=== PATIENT | male | born 2000 | race Caucasian/White ===

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

== ENCOUNTER 2018-01-06 02:48 | Emergency (ER) | payer OTHER ==
[~2018-01-06] VITALS: Ht 185.4 cm; Wt 143.0 kg
[~2018-01-06 02:48] MED LIST changes: -ABILIFY INJ; +ARIP1INJ IM; -AZITTAB PO; -BISA-16 PO; -DOCU-94 PO; -METF1000 PO; -OMEG10007 PO; -SYN50 PO; -[UNRECOGNIZED DRUG - OTHER] PO
[2018-01-06 02:55] VITALS: TEMP 36.4; Ht 185.4 cm; Wt 143.0 kg
[2018-01-06] MEDS ORDERED: KETOROLAC TROMETHAMINE 60 MG/2 ML VIAL IM STA (03:24)
--- NOTE | 2018-01-06 03:33 | EMERGENCY ROOM VISIT NOTE ---
History Report prepared by Dian: Sol Giraldo Under the Supervision of: Dr. Mattie Taylor D.O. First contact with patient: 03:07 Chief Complaint: BACK PAIN Stated Complaint: BACK PAIN History of Present Illness The patient is a 17 year old male who presents to the Emergency Room with complaints of intermittent back pain for one year. He currently rates his pain an 8/10 in severity. He state that he pulled his back so bad he could not walk at that time. He was seen in August 2017 for similar symptoms and was given Toradol at that time. He states that he has restless leg syndrome. He states that he has been seeing a chiropractor for his back pain. He reports he had an XR of his back and it revealed his vertebras are misaligned. He reports constipation. He states that he has tried an enema, stool softeners, and milk of magnesia, though no relief. He states he has taken a whole bottle of Miralax and that provided relief. He notes that he can only have his treatment medications prescribed to him since he lives in a snf, therefore he cannot purchase the Miralax on his own. He states he is a current smoker. When advised to quit smoking, the patient replied, "nah." The patient was recently seen at [facility] last night for similar symptoms and was prescribed a shot of unknown medication and was prescribed [place], though he cannot have it filled until Sunday. He states the shot was not relieving. He states that he does not like [place] and that is why he came here to [facility]. The patient and his caregiver drove from [place]. Source of History: patient Onset: one year Position: back Symptom Intensity: 8/10 Timing: intermittent Note: Notes constipation. Review of Systems See HPI for pertinent positives & negatives. A total of 6 systems reviewed and were otherwise negative. Past Medical & Surgical Medical Problems: (1) Autism (2) Depression Family History Autism FH: bipolar disorder FH: depression Social History Smoking Status: Current Every Day Smoker Marital Status: single Housing Status: other (snf) Current/Historical Medications Scheduled Aripiprazole (Abilify Maintena), 400 MG IM Q28 DAYS Allergies Coded Allergies: [place] (Unverified Allergy, Unknown, UNKNOWN, 09/26/16) Uncoded Allergies: CHEMO MED (Allergy, Unknown, UNKNOWN, 09/26/16) PT INDICATED HE HAD CANCER WHEN HE WAS YOUNGER. Physical Exam Vital Signs Date Time Temp Pulse Resp B/P (MAP) Pulse Ox O2 Delivery O2 Flow Rate FiO2 01/06/18 03:57 66 18 150/90 98 01/06/18 02:55 36.4 66 18 150/90 98 Room Air Physical Exam Heart: Regular rate and rhythm. There is a normal S1 and S2 with no murmurs, clicks, or gallops appreciated. Lungs: Clear to auscultation bilaterally with no wheezes, rales, or rhonchi. Abdomen: Soft, completely nontender, nondistended, with good bowel sounds. There are no palpable pulsatile masses or hepatosplenomegaly. There is no guarding, rigidity, or rebound noted. Back: Moderate paraspinous muscle spasm on the left lower thoracic spine. Extremities: No evidence of cyanosis, clubbing, or edema. There are easily palpable peripheral pulses. Skin: warm and dry with good turgor and no rashes. Medical Decision & Procedures Medications Administered Medications (Trade) Dose Ordered Sig/Rhona Route Start Time Stop Time Status Last Admin Dose Admin Ketorolac Tromethamine (Toradol Inj) 60 mg NOW STAT IM 01/06/18 03:24 01/06/18 03:25 DC 01/06/18 03:29 60 MG Procedure IM Toradol ED Course 0314: Past medical records reviewed. The patient was evaluated in room B5. A complete history and physical exam was performed. I discussed the treatment plan with the patient. I answered all pertaining questions that he had. He expressed understanding and verbalized agreement. The patient will be discharged home. 0324: Ordered Toradol 60 mg IM Medical Decision The patient is a 17 year old male who presents to the ED with back pain. Differential diagnosis includes low back strain, muscles spasm of the back, kidney stone, and UTI. The patient was seen at [facility] last evening with the same complaint. He was given a shot of pain medication there and prescribed [place]. The staff member admits that they did not get the [place] filled yet. The patient had been seen previously at this hospital and had good experience so he requested to come back here tonight. He had been seen here previously for back pain and was given a shot of pain medication which relieved his discomfort at that time. I reviewed that chart and the patient had received Toradol. So the patient was given 60 mg of IM Toradol here in the emergency department. We had an extensive conversation about the patient's constipation. I recommended that he avoid taking [place] that have been previously prescribed for him as it will promote constipation. He can use Motrin or Tylenol at home for pain. I recommended that he take plenty of clear liquids including prune juice and MiraLAX. He can return here to the emergency department if his symptoms worsen. Medication Reconcilliation Current Medication List: was personally reviewed by me Blood Pressure Screening Patient's blood pressure: Elevated blood pressure Blood pressure disposition: Elevated BP felt to be situational Impression Primary Impression: Low back pain Scribe Attestation The scribe's documentation has been prepared under my direction and personally reviewed by me in its entirety. I confirm that the note above accurately reflects all work, treatment, procedures, and medical decision making performed by me. Departure Information Dispostion Home / Self-Care Referrals No Doctor, Assigned (PCP) Forms HOME CARE DOCUMENTATION FORM, IMPORTANT VISIT INFORMATION Patient Instructions Low Back Pain Self Care, My [facility] Additional Instructions Use tylenol or motrin for pain. do not take [place] as it will worsen your constipation. Follow up with Dr. Platt on Sunday if back pain continues or you remain constipated Follow up with your chiropracter.
[2018-01-06 03:57] VITALS: BP 150/90; PULSE 66; O2SAT 98
== END 2018-01-06 03:59 | disposition home or self-care (01) ==
LOC: C.EDB 02:50
DX: M54.5 Low back pain (principal); F84.0 Autistic disorder; F32.9 Major depressive disorder, single episode, unspecified; F17.210 Nicotine dependence, cigarettes, uncomplicated; Z79.899 Other long term (current) drug therapy; Z88.8 Allergy status to other drugs, medicaments and biological substances

== ENCOUNTER 2018-04-01 19:44 | Inpatient (IN) | payer OTHER ==
[~2018-04-01] VITALS: Ht 185.4 cm; Wt 136.4 kg
[~2018-04-01 19:44] MED LIST changes: +ALBINS/ INH; -ARIP1INJ IM; +NYST100033 TOP
[2018-04-01] MEDS ORDERED: ACETAMINOPHEN 500 MG TAB PO STA (20:13)
[2018-04-01] MEDS ORDERED: SODIUM CHLORIDE 0.9% 1000ML 1,000 ML IV STA (20:13)
[2018-04-01] MEDS ORDERED: IBUPROFEN 600 MG TAB PO STA (20:13)
--- NOTE | 2018-04-01 20:24 | EMERGENCY ROOM VISIT NOTE ---
History Report prepared by Dian: Radha Winchester Under the Supervision of: Dr. Xu Herbert M.D. First contact with patient: 19:54 Chief Complaint: INFECTION Stated Complaint: L LEG INFECTION,FEVER History of Present Illness The patient is a 17 year old male who presents to the Emergency Room with complaints of a worsening infection in his left leg beginning a couple days ago. The patient reports the swelling and redness on his left leg has worsened over the past day. The patient started to develop a fever this afternoon. He denies any cough, congestion, shortness of breath, nausea, or vomiting. The patient was given IM antibiotics at [facility] over the past two days and was started on Bactrim He also had an ultrasound at [facility] today but he states they did not have the results yet. He denies any recent tick bites. 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 The patient used to take Klonopin for a history of autism. Source of History: patient Onset: couple days ago Position: leg (left) Quality: other (infection) Timing: worsening Associated Symptoms: + fevers, No cough, No SOB, No nausea, No vomiting Review of Systems See HPI for pertinent positives and negatives. A total of ten systems were reviewed and were otherwise negative. Past Medical & Surgical Medical Problems: (1) Autism (2) Depression (3) Leukemia Family History Autism FH: bipolar disorder FH: depression Social History Smoking Status: Current Every Day Smoker Marital Status: single Housing Status: other Current/Historical Medications Scheduled Sulfa/Trimethoprim (Bactrim Ds 800MG/160MG), 1 TAB PO BID Allergies Coded Allergies: [place] (Unverified Allergy, Unknown, UNKNOWN, 02/21/18) Uncoded Allergies: CHEMO MED (Allergy, Unknown, UNKNOWN, 09/26/16) PT INDICATED HE HAD CANCER WHEN HE WAS YOUNGER. Physical Exam Vital Signs Date Time Temp Pulse Resp B/P (MAP) Pulse Ox O2 Delivery O2 Flow Rate FiO2 04/01/18 22:59 37.2 84 20 147/60 97 Room Air 04/01/18 21:40 38.4 04/01/18 21:38 94 18 144/67 96 Room Air 04/01/18 19:51 38.3 97 18 145/78 96 Room Air Physical Exam GENERAL: Awake, alert, well-appearing, in no distress HENT: Normocephalic, atraumatic. Oropharynx unremarkable. Mucous membranes are dry. EYES: Normal conjunctiva. Sclera non-icteric. NECK: Supple. No nuchal rigidity. FROM. No JVD. RESPIRATORY: Clear to auscultation. CARDIAC: Regular rate, normal rhythm. Extremities warm and well perfused. Pulses equal. ABDOMEN: Soft, non-distended. No tenderness to palpation. No rebound or guarding. No masses. RECTAL: Deferred. MUSCULOSKELETAL: Chest examination reveals no tenderness. The back is symmetrical on inspection without obvious abnormality. There is no CVA tenderness to palpation. No joint edema. LOWER EXTREMITIES: Calves are equal size bilaterally and non-tender. Erythema, warmth and tenderness to left anterior kneed with 2cm area of induration and fluctuance in prepatellar bursa. NEURO: Normal sensorium. No sensory or motor deficits noted. SKIN: No rash or jaundice noted. Medical Decision & Procedures Laboratory Results 04/01/18 20:30 Red Blood Count 5.28, Mean Corpuscular Volume 85.4, Mean Corpuscular Hemoglobin 28.4, Mean Corpuscular Hemoglobin Concent 33.3, Mean Platelet Volume 11.3, Neutrophils (%) (Auto) 74.6, Lymphocytes (%) (Auto) 17.0, Monocytes (%) (Auto) 6.2, Eosinophils (%) (Auto) 1.8, Basophils (%) (Auto) 0.2, Neutrophils # (Auto) 9.30, Lymphocytes # (Auto) 2.12, Monocytes # (Auto) 0.77, Eosinophils # (Auto) 0.22, Basophils # (Auto) 0.02 04/01/18 20:30 Test 04/01/18 20:30 04/01/18 20:40 04/01/18 22:20 White Blood Count 12.46 K/uL (4.8-10.8) Red Blood Count 5.28 M/uL (4.7-6.1) Hemoglobin 15.0 g/dL (14.0-18.0) Hematocrit 45.1 % (42-52) Mean Corpuscular Volume 85.4 fL (80-100) Mean Corpuscular Hemoglobin 28.4 pg (25-34) Mean Corpuscular Hemoglobin Concent 33.3 g/dl (32-36) Platelet Count 236 K/uL (130-400) Mean Platelet Volume 11.3 fL (7.4-10.4) Neutrophils (%) (Auto) 74.6 % Lymphocytes (%) (Auto) 17.0 % Monocytes (%) (Auto) 6.2 % Eosinophils (%) (Auto) 1.8 % Basophils (%) (Auto) 0.2 % Neutrophils # (Auto) 9.30 K/uL (1.4-6.5) Lymphocytes # (Auto) 2.12 K/uL (1.2-3.4) Monocytes # (Auto) 0.77 K/uL (0.11-0.59) Eosinophils # (Auto) 0.22 K/uL (0-0.5) Basophils # (Auto) 0.02 K/uL (0-0.2) RDW Standard Deviation 43.1 fL (36.4-46.3) RDW Coefficient of Variation 13.9 % (11.5-14.5) Immature Granulocyte % (Auto) 0.2 % Immature Granulocyte # (Auto) 0.03 K/uL (0.00-0.02) Erythrocyte Sedimentation Rate 42 mm/hr (0-14) Anion Gap 6.0 mmol/L (3-11) Est Creatinine Clear Calc Drug Dose 157.7 ml/min Estimated GFR () 117.3 Estimated GFR (Non- 101.2 BUN/Creatinine Ratio 10.8 (10-20) Calcium Level 9.2 mg/dl (8.5-10.1) Total Bilirubin 0.4 mg/dl (0.2-1) Direct Bilirubin 0.1 mg/dl (0-0.2) Aspartate Amino Transf (AST/SGOT) 23 U/L (15-37) Alanine Aminotransferase (ALT/SGPT) 29 U/L (12-78) Alkaline Phosphatase 96 U/L (45-117) C-Reactive Protein 7.93 mg/dl (0-0.29) Total Protein 7.8 gm/dl (6.4-8.2) Albumin 3.6 gm/dl (3.4-5.0) Lipase 104 U/L (73-393) Lyme Disease IgG Antibody POS (NEG) Lactic Acid Level 0.8 mmol/L (0.4-2.0) Laboratory results reviewed by me Medications Administered Medications (Trade) Dose Ordered Sig/[facility] Route Start Time Stop Time Status Last Admin Dose Admin Sodium Chloride 1,000 ml @ 999 mls/hr Q1H1M STAT IV 04/01/18 20:13 04/01/18 21:13 DC 04/01/18 20:13 999 MLS/HR Acetaminophen (Tylenol Tab) 1,000 mg NOW STAT PO 04/01/18 20:13 04/01/18 20:16 DC 04/01/18 20:52 1,000 MG Ibuprofen (Motrin Tab) 800 mg NOW STAT PO 04/01/18 20:13 04/01/18 20:16 DC 04/01/18 20:52 800 MG Vancomycin HCl 2250 mg/Sodium Chloride 545 ml @ 200 mls/hr ONE STAT IV 04/01/18 20:28 04/01/18 23:11 04/01/18 21:36 200 MLS/HR Piperacillin Sod/ Tazobactam Sod (Zosyn Iv) 4.5 gm NOW STAT IV 04/01/18 20:28 04/01/18 20:30 DC 04/01/18 20:52 4.5 GM Procedure Aspiration Indication: Septic prepatellar bursitis. Location: Left knee prepatellar bursa Verbal consent was obtained after the risks and benefits were explained, including but not limited to bleeding, scarring, infection, pain, and bone/joint /nerve damage. At this time, the risks of the procedure are less than the risks of NOT performing the procedure. A time out was taken and the correct patient and site identified. Heterogenous prepatellar bursa identified and marked on bedside ultrasound prior to aspiration. The skin was prepped with betadine and a sterile field set. The wound was anesthetized with 4 ml of 1% lidocaine without epinephrine. Marked site was entered with an 18-gauge needle with removal of approximately 10 cc of sanguinous aspirate. Detailed wound care instructions and signs and symptoms of worsening infection reviewed with the patient. No complications and the patient tolerated the procedure well. ED Course 2006: The patient was evaluated in room C4. A complete history and physical exam was performed. Medical Decision I reviewed the patient's past medical history, medications, and the nursing notes as described above. Differential diagnosis: septic bursitis, septic knee, abscess, bursitis, or cellulitis The patient is a pleasant 17-year-old gentleman who presents to emergency department with worsening redness, swelling, pain overlying his left knee in the setting of being managed at his PCPs office for cellulitis given IM dose of ceftriaxone for the past 2 days and on Bactrim per hpi. Of note, the patient had an outpatient ultrasound that demonstrated a complex cystic heterogenous collection of the anterior left knee measuring 3.3 x 1.9 x 4.7 cm with differential including abscess versus septic prepatellar bursitis versus septic arthritis. On arrival the patient is well-appearing in no acute distress, febrile to 38.3 vital signs otherwise stable. On exam the patient has erythema and warmth to the left anterior knee with 2 cm area of induration and fluctuance overlying the prepatellar bursa. Patient does have full range of motion albeit with discomfort and he is able to bear weight, making septic arthritis less likely. However, given the patient is currently on outpatient antibiotics which included IM ceftriaxone and oral Bactrim still has worsening is reasonable to admit the patient for IV antibiotics and ortho consultation. Will provide broad coverage for now with vancomycin and Zosyn. Lyme screen subsequently with positive IgM. Thus will add ceftriaxone as well. Aspiration of the patient's prepatellar bursa performed per procedure note with 10 cc of sanguinous aspirate removed likely consistent with phlegmon. Case was discussed with Dr. Torres [facility], who will evaluate the patient for admission. Medication Reconcilliation Current Medication List: was personally reviewed by me Consults Time Called: 2240 Consulting Physician: Dr. Torres [facility]. Returned Call: 2250 He will evaluate the patient for admission. Impression Primary Impression: Septic prepatellar bursitis of left knee Additional Impression: Lyme disease, unspecified Scribe Attestation The scribe's documentation has been prepared under my direction and personally reviewed by me in its entirety. I confirm that the note above accurately reflects all work, treatment, procedures, and medical decision making performed by me. Departure Information Referrals No Doctor, Assigned (PCP) Patient Instructions My [facility] Problem Qualifiers
[2018-04-01] MEDS ORDERED: PIPERACILLIN/TAZOBACTAM 4.5 GM/100ML D5W IV STA (20:28)
[2018-04-01] MEDS ORDERED: VANCOMYCIN IV 2,250 MG in SODIUM CHLORIDE 0.9% 500ML 500 ML IV STA (20:28)
[2018-04-01] MEDS ORDERED: VANCOMYCIN CONSULT ACTIVE PRN (20:30)
[2018-04-01] MEDS ORDERED: IBUPROFEN 200 MG TAB ONE (20:41)
[2018-04-01] MEDS ORDERED: SULF800T23 PO (21:01)
[2018-04-01 21:08] LABS: BASO % 0.2 %; BASO ABS # 0.02 K/uL (0-0.2); EOS % 1.8 %; EOS ABS # 0.22 K/uL (0-0.5); HEMATOCRIT 45.1 % (42-52); IG# 0.03 K/uL (0.00-0.02); LYMPH ABS # 2.12 K/uL (1.2-3.4); MEAN CELL VOLUME 85.4 fL (80-100); MEAN CORPUSCULAR HEMOGLOBIN 28.4 pg (25-34); MEAN CORPUSCULAR HGB CONC 33.3 g/dl (32-36); MEAN PLATELET VOLUME 11.3 fL (7.4-10.4); MONO % 6.2 %; MONO ABS # 0.77 K/uL (0.11-0.59); NEUT % 74.6 %; PLATELET COUNT 236 K/uL (130-400); RED CELL DISTRIBUTION WIDTH CV 13.9 % (11.5-14.5); RED CELL DISTRIBUTION WIDTH SD 43.1 fL (36.4-46.3); WHITE BLOOD COUNT 12.46 K/uL (4.8-10.8)
[2018-04-01 21:19] LABS: ALBUMIN 3.6 gm/dl (3.4-5.0); CALCIUM 9.2 mg/dl (8.5-10.1); CREATININE 1.06 mg/dl (0.60-1.40); POTASSIUM 3.9 mmol/L (3.5-5.1); TOTAL PROTEIN 7.8 gm/dl (6.4-8.2)
--- NOTE | 2018-04-01 21:28 | DIAGNOSTIC IMAGING REPORT ---
L KNEE 3 VIEWS CLINICAL HISTORY: pain swelling, cellulitis pain. Edema. COMPARISON: None. DISCUSSION: The bones and joint spaces appear intact. There is no evidence of fracture, dislocation or bony disease. Moderate prepatellar soft tissue edema IMPRESSION: Soft tissue edema. No acute bony abnormality. The above report was generated using voice recognition software. It may contain grammatical, syntax or spelling errors. Electronically signed by: Solitario Ann M.D. 04/01/2018 9:27 PM Dictated Date/Time: 04/01/2018 9:26 PM
[2018-04-01] MEDS ORDERED: LIDOCAINE 1% BUFFERED INJ 20 ML VIAL INFIL ONE (21:45)
[2018-04-01] MEDS ORDERED: CEFTRIAXONE SOD INJ 2000 MG in DEXTROSE 5% 50ML IV SCH (22:26)
[2018-04-01] MEDS ORDERED: CEFTRIAXONE SOD INJ 1 GM ADDVIAL IV STA (22:26)
[2018-04-01] MEDS ORDERED: NICOTINE 21 MG/24 HR TDSY TD ONE (23:16)
[2018-04-01] MEDS ORDERED: LORATADINE 10 MG TAB PO ONE (23:30)
[2018-04-02] VITALS (12 sets, daily range): BP systolic 103–148; BP diastolic 57–86; PULSE 67–96; TEMP 36.5–36.8; O2SAT 93–97; Ht 185.4 cm; Wt 136.4 kg
[2018-04-02] MEDS ORDERED: VANCOMYCIN CONSULT ACTIVE PRN (00:45)
[2018-04-02] MEDS ORDERED: MoRPHine SULFATE 4 MG/ML 1 ML CARP\\VIAL IV PRN (00:45)
[2018-04-02] MEDS ORDERED: KETOROLAC TROMETHAMINE 30 MG/ML VIAL IV PRN (00:45)
[2018-04-02] MEDS ORDERED: ACETAMINOPHEN 325 MG TAB PO PRN (00:45)
[2018-04-02] MEDS ORDERED: LORAZEPAM 2 MG/ML 1 ML VIAL IV PRN (00:45)
[2018-04-02] MEDS ORDERED: IBUPROFEN 200 MG TAB PO PRN (00:45)
[2018-04-02] MEDS ORDERED: TRAMADOL HCL 50 MG TAB PO PRN (00:45)
[2018-04-02] MEDS ORDERED: NSS + 20MEQ KCL 1000ML 1,000 ML IV SCH (03:00)
--- NOTE | 2018-04-02 03:52 | Pharmacy Progress Note ---
Pharmacy Antibiotic Consult Date of Service: Apr 02, 2018. Pharmacy Dosing Scope Pharmacy is consulted to initiate VANCOMYCIN IV dosing therapy, order appropriate labs and adjust drug dose/frequency. Subjective The patient is a 17 year old male admitted on Apr 02, 2018 at 00:19. Objective Height (Feet): 6 Height (Inches): 1.00 Weight (Kilograms): 136.400 Lab Results (24hrs): Test 04/01/18 20:30 04/01/18 20:40 04/01/18 22:20 White Blood Count 12.46 K/uL (4.8-10.8) Red Blood Count 5.28 M/uL (4.7-6.1) Hemoglobin 15.0 g/dL (14.0-18.0) Hematocrit 45.1 % (42-52) Mean Corpuscular Volume 85.4 fL (80-100) Mean Corpuscular Hemoglobin 28.4 pg (25-34) Mean Corpuscular Hemoglobin Concent 33.3 g/dl (32-36) Platelet Count 236 K/uL (130-400) Mean Platelet Volume 11.3 fL (7.4-10.4) Neutrophils (%) (Auto) 74.6 % Lymphocytes (%) (Auto) 17.0 % Monocytes (%) (Auto) 6.2 % Eosinophils (%) (Auto) 1.8 % Basophils (%) (Auto) 0.2 % Neutrophils # (Auto) 9.30 K/uL (1.4-6.5) Lymphocytes # (Auto) 2.12 K/uL (1.2-3.4) Monocytes # (Auto) 0.77 K/uL (0.11-0.59) Eosinophils # (Auto) 0.22 K/uL (0-0.5) Basophils # (Auto) 0.02 K/uL (0-0.2) RDW Standard Deviation 43.1 fL (36.4-46.3) RDW Coefficient of Variation 13.9 % (11.5-14.5) Immature Granulocyte % (Auto) 0.2 % Immature Granulocyte # (Auto) 0.03 K/uL (0.00-0.02) Erythrocyte Sedimentation Rate 42 mm/hr (0-14) Sodium Level 136 mmol/L (136-145) Potassium Level 3.9 mmol/L (3.5-5.1) Chloride Level 102 mmol/L (98-107) Carbon Dioxide Level 28 mmol/L (21-32) Anion Gap 6.0 mmol/L (3-11) Blood Urea Nitrogen 12 mg/dl (7-18) Creatinine 1.06 mg/dl (0.60-1.40) Est Creatinine Clear Calc Drug Dose 157.7 ml/min Estimated GFR () 117.3 Estimated GFR (Non- 101.2 BUN/Creatinine Ratio 10.8 (10-20) Random Glucose 88 mg/dl (70-99) Calcium Level 9.2 mg/dl (8.5-10.1) Magnesium Level 1.9 mg/dl (1.8-2.4) Total Bilirubin 0.4 mg/dl (0.2-1) Direct Bilirubin 0.1 mg/dl (0-0.2) Aspartate Amino Transf (AST/SGOT) 23 U/L (15-37) Alanine Aminotransferase (ALT/SGPT) 29 U/L (12-78) Alkaline Phosphatase 96 U/L (45-117) C-Reactive Protein 7.93 mg/dl (0-0.29) Total Protein 7.8 gm/dl (6.4-8.2) Albumin 3.6 gm/dl (3.4-5.0) Lipase 104 U/L (73-393) Thyroid Stimulating Hormone (TSH) 2.920 uIu/ml (0.300-4.500) Lyme Disease IgG Antibody POS (NEG) Lyme Disease IgM Antibody NEG (NEG) Lactic Acid Level 0.8 mmol/L (0.4-2.0) Micro Results: * 04/01/18 -- Blood Cx x 2 -- pending * 04/01/18 -- L knee aspirate -- pending Recent Pertinent Medications Item Value Date Time Ceftriaxone 70 ml @ 140 mls/hr 04/01/182225 Sodium 2000 mg/ 2226/IV 04/01/18 233 Dextrose Piperacillin Sod/ 4.5 gm 04/01/182027 Tazobactam Sod NOW STAT/IV 04/01/182051 (Zosyn Iv) Assessment & Plan 17yo male ordered VANCOMYCIN for cellulitis. Renal function good. VANCOMYCIN: * Loading dose: VANCOMYCIN 2250mg (~17mg/kg) IV X 1 dose then VANCOMYCIN 1750mg (~13mg/kg) IV every 8 hours. * Goal trough level estimate: between 15 - 20 mcg/mL. * Estimated Pk parameters: Ke ~0.135 t 1/2 ~5 hours Vd ~0.6 L/kg * Trough level has been ordered for: @ 0600. Pharmacy will continue to follow and will adjust dose/frequency as necessary. Thank you
--- NOTE | 2018-04-02 05:22 | HISTORY & PHYSICAL EXAMINATION ---
DATE OF ADMISSION: 04/02/2018 PRIMARY CARE PHYSICIAN: Dr. Bahena. CHIEF COMPLAINT: Left knee swelling/pain. HISTORY OF PRESENT ILLNESS: History obtained from patient and records. Medical history significant for attention deficit, OCD, childhood leukemia in remission, prediabetes as per records, mood disorder, developmental disorder, autism, asthma, ongoing tobacco abuse. Few days history of L Knee swelling. No recollection of trauma. No fever, no chills. No recollection of recent tick bites. Seen at PCP's office 3 days ago. Impression was LLE cellulitis versus abscess. Given IM Ceftriaxone. Bactrim prescription given. Follow-up visit the following day. Improved swelling. Outpatient US the left lower extremity showed complex cystic heterogenous collection anterior left knee 3.3 x 1.9 x 4.7 cm with differentials including subcutaneous abscess, septic bursitis, arthritis. Outpatient Orthopedics referral recommended. Patient brought to the ER by family because of fever, chills. At the Emergency Room, the patient received Vancomycin, Zosyn, and Ceftriaxone after aspiration of left knee fluid. MEDICAL HISTORY: As above. SURGERIES: circumcision. HOME MEDICATIONS: Include Bactrim. ALLERGIES: LITHIUM. FAMILY HISTORY: There is a family history of hypertension, heart disease, diabetes. PERSONAL AND SOCIAL HISTORY: A pack daily. No chronic intake of alcoholic beverages. Disabled. REVIEW OF SYSTEMS: As per HPI, all 10 systems reviewed. All other ROS negative. PHYSICAL EXAMINATION: VITAL SIGNS: Blood pressure was noted to be 144/80, pulse rate 94, RR 20 temperature 38, sats 98 on room air. GENERAL: Noted to be obese, comfortable, in no respiratory distress. SKIN: Normal color, warm. HEENT: [place] palpebral conjunctivae. No ptosis. Dry mucosa. NECK: Short, supple. CHEST: Decreased effort, no tenderness. HEART: Regular rate and rhythm, no murmur. ABDOMEN: Soft, nontender. EXTREMITIES: Tender indurated swelling on the left knee, induration, minimal limitation in L knee ROM. NEUROLOGIC: Coherent. No gross focality. LABS: Hemoglobin was noted to be 14 white blood cell count 12, platelets noted to be 236. Sodium 137, potassium 3.6, CO2 is 28, creatinine 1, glucose 88. Lyme screen IgG positive, IgM negative. Knee x-ray, left knee, soft tissue edema, no acute pathology. Ultrasound of left lower extremity, no DVT. L knee aspirate initial Gram stain : many WBCs, gram-positive cocci ASSESSMENT: 1. Sepsis secondary to left knee swelling (likely extraarticular) Possible bursitis GPC on initial Gram stain. 2. Mood disorder, OCD as per records Patient off meds by choice. 3. High functioning autism as per records 4. Ongoing tobacco abuse 5. Abnormal Lyme screen (IgG positive) Probable past exposure PLAN: GMF Follow cultures IV Vancomycin for now Local measures for left knee swelling Orthopedics consult in a.m. RE left knee swelling N.p.o. in anticipation of additional procedure Nicotine patch. DVT prophylaxis, Lovenox subQ. Full code. MTDD
[2018-04-02] MEDS: VANCOMYCIN IV 1,750 MG in SODIUM CHLORIDE 0.9% 500ML 500 ML IV SCH ×3 (05:42→22:13)
[2018-04-02] MEDS ORDERED: VANCOMYCIN IV 1,750 MG in SODIUM CHLORIDE 0.9% 500ML 500 ML IV SCH (06:00)
[2018-04-02 06:22] LABS: PTT PATIENT 32.1 SECONDS (21.0-31.0)
--- NOTE | 2018-04-02 06:45 | DIAGNOSTIC IMAGING REPORT ---
LEFT LOWER EXTREMITY VENOUS DOPPLER CLINICAL HISTORY: Left lower extremity swelling. COMPARISON STUDY: None. TECHNIQUE: Sonography of the deep venous system of the left lower extremity was performed. Compression and augmentation were evaluated. FINDINGS: The left common femoral, superficial femoral and popliteal veins were compressible. Augmentation was normal. Flow was shown within the deep calf vessels. No is made of prominent left inguinal lymph nodes that measure up to 4.7 x 1.2 centimeters. These nodes contain a fatty hilum. IMPRESSION: 1. No evidence of deep venous thrombus within the left lower extremity. 2. Prominent left inguinal lymph nodes. Although mildly enlarged, these nodes have benign imaging characteristics. A follow-up ultrasound in 3 months could be obtained. Electronically signed by: Srinivas Enrique M.D. 04/02/2018 6:44 AM Dictated Date/Time: 04/02/2018 6:42 AM
[2018-04-02] MEDS ORDERED: NICOTINE 21 MG/24 HR TDSY TD SCH (09:00)
[2018-04-02] MEDS: ENOXAPARIN 40 MG/0.4 ML SYR SQ SCH (09:05)
[2018-04-02] MEDS ORDERED: LORATADINE/PSEUDOEPHEDRINE 1 TAB TABCR PO ONE (11:00)
[2018-04-02] MEDS ORDERED: MIDAZOLAM HCL 1 MG/ML 2ML VIAL ONE (11:15)
[2018-04-02] MEDS ORDERED: FENTANYL CITRATE INJ 50 MCG/1 ML 2 ML VIAL ONE (11:15)
[2018-04-02] MEDS ORDERED: LIDOCAINE HCL 2% 2 ML VIAL (20MG/ML) ONE (11:19)
[2018-04-02] MEDS ORDERED: PROPOFOL IV EMULSION 10 MG/ML 20 ML VIAL ONE ×2 (11:19→12:20)
--- NOTE | 2018-04-02 11:20 | Orthopedic Consultation ---
Orthopedic Consultation Date of Consultation: Apr 02, 2018. Attending Physician: Meño Arora M.D. Reason for Consultation: Left leg swelling History of Present Illness Mr. Mclaughlin is an 16-year-old male who has had about 2 weeks of progressively worsening swelling on his left superior-anterior knee area. Initially just noted some pain in the area, but no significant swelling. Then, about 3 days ago he developed swelling in the same area. He went to his primary care doctor , who gave him ceftriaxone IM, and Bactrim p.o. He had progressive worsening of the pain and swelling, and also developed fevers yesterday. He then presented to the emergency department, where they performed aspiration of a fluid collection in the area. They also gave him vancomycin, Zosyn, and ceftriaxone. Today, he feels like his knee feels a little bit better, but the swelling has not really improved. He denies any fevers, chills, nausea, or vomiting currently. He denies any significant pain with ambulation or knee range of motion. Past Medical/Surgical History Medical Problems: (1) Ankle pain Status: Acute (2) Bronchitis Status: Acute (3) Encounter for smoking cessation counseling Status: Acute (4) Low back pain Status: Acute (5) Low back strain Status: Acute (6) Lyme disease, unspecified Status: Acute (7) Mood disorder Status: Acute (8) Septic prepatellar bursitis of left knee Status: Acute (9) Skin breakdown Status: Acute (10) Suicidal ideations Status: Acute Family History Autism FH: bipolar disorder FH: depression Social History Smoking Status: Current Every Day Smoker Marital Status: single Housing Status: other Allergies Coded Allergies: [place] (Verified Allergy, Unknown, UNKNOWN, 04/01/18) Uncoded Allergies: CHEMO MED (Allergy, Unknown, UNKNOWN, 09/26/16) PT INDICATED HE HAD CANCER WHEN HE WAS YOUNGER. Home Medications Scheduled Sulfa/Trimethoprim (Bactrim Ds 800MG/160MG), 1 TAB PO BID Current Inpatient Medications Current Inpatient Medications Medications (Trade) Dose Ordered Sig/Rhona Route Start Time Stop Time Status Last Admin Dose Admin Nicotine (Nicoderm Cq 21MG Patch) 1 patch QAM TD 04/02/18 09:00 05/02/18 08:59 04/02/18 09:05 1 PATCH Miscellaneous (Remove Nicoderm Patch) 1 ea HS N/A 04/02/18 21:00 05/02/18 20:59 Enoxaparin Sodium (Lovenox Inj) 40 mg Q24H SQ 04/02/18 09:00 05/02/18 08:59 04/02/18 09:05 40 MG Acetaminophen (Tylenol Tab) 650 mg Q4H PRN PO 04/02/18 00:45 05/02/18 00:44 Ketorolac Tromethamine (Toradol Inj) 30 mg Q6H PRN IV 04/02/18 00:45 04/07/18 00:44 Ibuprofen (Advil Tab) 400 mg Q6H PRN PO 04/02/18 00:45 05/02/18 00:44 Tramadol HCl (Ultram Tab) not relieved by tylenol @ Q6H PRN PO 04/02/18 00:45 05/02/18 00:44 Morphine Sulfate (MoRPHine SULFATE INJ) 4 mg Q6H PRN IV 04/02/18 00:45 04/16/18 00:44 Potassium Chloride/Sodium Chloride 1,000 ml @ 60 mls/hr [id number] IV 04/02/18 03:00 05/02/18 00:44 04/02/18 03:08 60 MLS/HR Vancomycin HCl (Consult) 1 ea UD PRN N/A 04/02/18 00:45 05/02/18 00:44 Lorazepam 0.5 mg/ Syringe 1 ml @ 1 mls/min Q4H PRN IV 04/02/18 02:30 05/02/18 02:29 Vancomycin HCl 1750 mg/Sodium Chloride 535 ml @ 200 mls/hr Q8H IV 04/02/18 06:00 04/12/18 05:59 04/02/18 05:42 200 MLS/HR Loratadine/ Pseudoephedrine Sulfate (Claritin-D 24 Hour Tab) 1 tab QAM PO 04/03/18 09:00 05/03/18 08:59 Physical Exam Date Time Temp Pulse Resp B/P (MAP) Pulse Ox O2 Delivery O2 Flow Rate FiO2 04/02/18 08:25 Room Air 96 04/02/18 07:45 Room Air 04/02/18 07:37 36.8 68 18 148/86 (106) 96 Room Air 04/02/18 02:05 Room Air 04/02/18 01:47 36.7 77 16 132/71 95 Room Air 04/02/18 00:45 36.6 88 18 151/64 Room Air 04/01/18 22:59 37.2 84 20 147/60 97 Room Air 04/01/18 21:40 38.4 04/01/18 21:38 94 18 144/67 96 Room Air 04/01/18 19:51 38.3 97 18 145/78 96 Room Air Left leg and knee: He has an area of fluctuance, induration, erythema, and tenderness to palpation at least 6 cm in width, and 3-4 cm in height. The area involved is superior to the patella, and does not really involve the prepatellar bursa. No obvious knee joint effusion, although it is difficult to tell given the location of the abscess in the suprapatellar area. He has a tiny bit of serous drainage from his aspiration site. No expressible drainage, but this is limited by his significant tenderness to palpation. No significant pain with knee range of motion. Foot is warm and well-perfused. Motor and sensory is intact distally. Laboratory Results Last 24 Hours Test 04/01/18 20:30 04/01/18 20:40 04/01/18 22:20 04/02/18 05:50 White Blood Count 12.46 K/uL Red Blood Count 5.28 M/uL Hemoglobin 15.0 g/dL Hematocrit 45.1 % Mean Corpuscular Volume 85.4 fL Mean Corpuscular Hemoglobin 28.4 pg Mean Corpuscular Hemoglobin Concent 33.3 g/dl Platelet Count 236 K/uL Mean Platelet Volume 11.3 fL Neutrophils (%) (Auto) 74.6 % Lymphocytes (%) (Auto) 17.0 % Monocytes (%) (Auto) 6.2 % Eosinophils (%) (Auto) 1.8 % Basophils (%) (Auto) 0.2 % Neutrophils # (Auto) 9.30 K/uL Lymphocytes # (Auto) 2.12 K/uL Monocytes # (Auto) 0.77 K/uL Eosinophils # (Auto) 0.22 K/uL Basophils # (Auto) 0.02 K/uL RDW Standard Deviation 43.1 fL RDW Coefficient of Variation 13.9 % Immature Granulocyte % (Auto) 0.2 % Immature Granulocyte # (Auto) 0.03 K/uL Erythrocyte Sedimentation Rate 42 mm/hr Sodium Level 136 mmol/L Potassium Level 3.9 mmol/L Chloride Level 102 mmol/L Carbon Dioxide Level 28 mmol/L Anion Gap 6.0 mmol/L Blood Urea Nitrogen 12 mg/dl Creatinine 1.06 mg/dl Est Creatinine Clear Calc Drug Dose 157.7 ml/min Estimated GFR () 117.3 Estimated GFR (Non- 101.2 BUN/Creatinine Ratio 10.8 Random Glucose 88 mg/dl Calcium Level 9.2 mg/dl Magnesium Level 1.9 mg/dl Total Bilirubin 0.4 mg/dl Direct Bilirubin 0.1 mg/dl Aspartate Amino Transf (AST/SGOT) 23 U/L Alanine Aminotransferase (ALT/SGPT) 29 U/L Alkaline Phosphatase 96 U/L C-Reactive Protein 7.93 mg/dl Total Protein 7.8 gm/dl Albumin 3.6 gm/dl Lipase 104 U/L Thyroid Stimulating Hormone (TSH) 2.920 uIu/ml Lyme Disease IgG Antibody POS Lyme Disease IgM Antibody NEG Lactic Acid Level 0.8 mmol/L Synovial Fluid Source KNEE Synovial Fluid Color RED Synovial Fluid Appearance MUCOID Synovial Fluid WBC 387590 /uL Synovial Fluid RBC 185396 /uL Synovial Fluid Polynuclear WBCs % 98.7 % Synovial Fluid Mononuclear WBCs % 1.3 % Prothrombin Time 10.5 SECONDS Prothromb Time International Ratio 1.0 Activated Partial Thromboplast Time 32.1 SECONDS Partial Thromboplastin Ratio 1.2 Microbiology: Aspiration cultures from the emergency department are still pending, but Gram stain showed many gram-positive cocci. Blood cultures are negative so far. Radiology: Left knee x-rays are unremarkable. No significant arthritis. No obvious joint effusion. Assessment & Plan (1) Abscess of leg, left Assessment & Plan: He has a fairly large abscess in the left anterior superior knee area. This does not really involve the prepatellar bursa, and does not appear to involve the knee joint itself. I would recommend an irrigation and debridement surgery for definitive treatment of this. Surgical consent was obtained with the patient, and this was also discussed with the patient's grandmother. We will plan to do this today. I am covering orthopedic surgery call for Dr. Powell, who is unavailable. Elías Avila MD
[2018-04-02] MEDS ORDERED: BACITRACIN 50000 UNIT VIAL ONE (11:22)
[2018-04-02] MEDS ORDERED: ONDANSETRON INJ 2 MG/ML 2 ML VIAL ONE (12:16)
[2018-04-02] MEDS ORDERED: DEXAMETHASONE SOD INJ 4 MG/ML VIAL ONE (12:16)
[2018-04-02] MEDS ORDERED: FENTANYL CITRATE INJ 50 MCG/1 ML 2 ML VIAL IV PRN (12:30)
[2018-04-02] MEDS ORDERED: ATROPINE SULFATE 0.1 MG/ML 5ML SYR IV PRN (12:30)
[2018-04-02] MEDS ORDERED: ONDANSETRON INJ 2 MG/ML 2 ML VIAL IV PRN (12:30)
[2018-04-02] MEDS ORDERED: KETOROLAC TROMETHAMINE 30 MG/ML VIAL IV. PRN (12:30)
--- NOTE | 2018-04-02 13:02 | [facility] Post Operative Brief Note ---
Immediate Operative Summary Operative Date Apr 02, 2018. Pre-Operative Diagnosis left knee abcess Post-Operative Diagnosis Left Knee abscess Procedure(s) Performed Irrigation and debridement left knee abscess Surgeon Dr. Elías Avila Typewriters Functional Tester Surgeon(s) None Estimated Blood Loss 25CC Findings Consistent with Post-Op Diagnosis Fluids (cc crystalloids) 500cc Specimens Micro: #1: Left knee pus-anaerobic, aerobic, culture and sensitivity Drains Medium Hemovac x 1, Prevena incisional VAC Anesthesia Type General Complication(s) none
--- NOTE | 2018-04-02 13:14 | [facility] Operative Report ---
Operative Report Operative Date Apr 02, 2018. Pre-Operative Diagnosis Left knee abscess Post-Operative Diagnosis Left knee abscess Procedure(s) Performed Irrigation and debridement left knee abscess Surgeon Dr. Elías Avila Anesthesiologist And Critical Care Surgeon(s) None Estimated Blood Loss 25CC Findings Copious pus Fluids 500cc Specimens Micro: #1: Left knee pus-anaerobic, aerobic, culture and sensitivity Drains Medium Hemovac x 1, Prevena incisional VAC Anesthesia General Complication(s) None Disposition Recovery Room / PACU Indications Mr. Mclaughlin is a 17-year-old male with worsening redness, swelling, and pain in the left anterior superior knee area. He was diagnosed with an abscess, and urgent surgical debridement was recommended. Risks, benefits, and alternatives of surgery were explained in detail. He understood all this and wished to proceed. Description of Procedure Mr. Mclaughlin was identified in the Surgical Admissions area of the [facility]. Operative extremity was marked. He was then brought back to the operating room and placed supine on the operating room table. General anesthesia was induced without complication. Two grams of Ancef were infused intravenously for antibiotic prophylaxis. Tourniquet was placed on the left upper thigh. Left leg was then prepped and draped in a standard sterile fashion using Chlorhexidine prep. Leg was then exsanguinated by elevation only , and the tourniquet was inflated. I first made a 4-5 cm vertical midline incision directly over the abscess just proximal to the patella. I incised through skin and subcutaneous tissue directly down to the abscess. Bovie electrocautery was new used as necessary for hemostasis. There was a copious amount of purulent drainage within the abscess that was evacuated. Culture swab was obtained at this time. I then aggressively debrided the abscess cavity with curette and rongeur. I then palpated around the abscess cavity carefully. The abscess tracked about 5 cm medially, and about 2 cm laterally from the incision line. It did not violate the extensor mechanism or knee joint capsule deeply. After a thorough and aggressive debridement, I then copiously irrigated the wound with 6000 cc of plain sterile saline via gravity irrigation. After debridement and irrigation were complete, I then placed a Hemovac drain deeply within the abscess cavity. This was sewn into place. I then closed the incision line with 3-0 PDS suture in the subcutaneous tissue, and 3-0 Prolene in the skin. I then applied Pravena incisional VAC along the incision line to assist with drainage and edema control. Hemovac drain site was dressed with Xeroform, sterile gauze, and Tegaderm. The lower leg was then overwrapped with an Edinson wrap. Tourniquet was let down after 25 minutes of tourniquet time. The drapes were removed, the patient was awakened from general anesthesia, transferred over to the stretcher, and taken to the Post Anesthesia Care Unit in stable condition. There were no immediate complications to the procedure. I was present and scrubbed for the entire procedure. I attest to the content of the Intraoperative Record and any orders documented therein. Any exceptions are noted below. I am covering Orthopedic Surgery call for Dr. Powell, who is unavailable. Elías Avila MD
--- NOTE | 2018-04-02 13:32 | Medical Consult ---
Consultation Date of Consultation: Apr 02, 2018. Attending Physician: Meño Arora M.D. Reason for Consultation: Left knee infection, Lyme exposure History of Present Illness 17-year-old male with autistic disorder, depression, who was in usual state of health until several days prior to admission when he noted onset of left knee pain, redness, and swelling. Symptoms gradually worsened, and patient developed fever, was seen as an outpatient and ultimately referred to the emergency room for further management. He has undergone ultrasound of the left leg which shows complex collection over the left knee. Patient now waiting orthopedic evaluation for incision and drainage. Currently patient's pain rated 5/10 in intensity. Has been started empirically on vancomycin. Gram. stain of fluid shows gram-positive cocci Past Medical/Surgical History Medical Problems: (1) Ankle pain Status: Acute (2) Bronchitis Status: Acute (3) Encounter for smoking cessation counseling Status: Acute (4) Low back pain Status: Acute (5) Low back strain Status: Acute (6) Lyme disease, unspecified Status: Acute (7) Mood disorder Status: Acute (8) Septic prepatellar bursitis of left knee Status: Acute (9) Skin breakdown Status: Acute (10) Suicidal ideations Status: Acute Medical Problems: (1) Autism (2) Depression (3) Leukemia (4) Sepsis Family History Autism FH: bipolar disorder FH: depression Social History Smoking Status: Current Every Day Smoker Marital Status: single Housing Status: other Allergies Coded Allergies: [place] (Verified Allergy, Unknown, UNKNOWN, 04/01/18) Uncoded Allergies: CHEMO MED (Allergy, Unknown, UNKNOWN, 09/26/16) PT INDICATED HE HAD CANCER WHEN HE WAS YOUNGER. Current Inpatient Medications Current Inpatient Medications Medications (Trade) Dose Ordered Sig/Rhona Route Start Time Stop Time Status Last Admin Dose Admin Nicotine (Nicoderm Cq 21MG Patch) 1 patch QAM TD 04/02/18 09:00 05/02/18 08:59 04/02/18 09:05 1 PATCH Miscellaneous (Remove Nicoderm Patch) 1 ea HS N/A 04/02/18 21:00 05/02/18 20:59 Enoxaparin Sodium (Lovenox Inj) 40 mg Q24H SQ 04/02/18 09:00 05/02/18 08:59 04/02/18 09:05 40 MG Acetaminophen (Tylenol Tab) 650 mg Q4H PRN PO 04/02/18 00:45 05/02/18 00:44 Ketorolac Tromethamine (Toradol Inj) 30 mg Q6H PRN IV 04/02/18 00:45 04/07/18 00:44 Ibuprofen (Advil Tab) 400 mg Q6H PRN PO 04/02/18 00:45 05/02/18 00:44 Tramadol HCl (Ultram Tab) not relieved by tylenol @ Q6H PRN PO 04/02/18 00:45 05/02/18 00:44 Morphine Sulfate (MoRPHine SULFATE INJ) 4 mg Q6H PRN IV 04/02/18 00:45 04/16/18 00:44 Potassium Chloride/Sodium Chloride 1,000 ml @ 60 mls/hr [id number] IV 04/02/18 03:00 05/02/18 00:44 04/02/18 03:08 60 MLS/HR Vancomycin HCl (Consult) 1 ea UD PRN N/A 04/02/18 00:45 05/02/18 00:44 Lorazepam 0.5 mg/ Syringe 1 ml @ 1 mls/min Q4H PRN IV 04/02/18 02:30 05/02/18 02:29 Vancomycin HCl 1750 mg/Sodium Chloride 535 ml @ 200 mls/hr Q8H IV 04/02/18 06:00 04/12/18 05:59 04/02/18 05:42 200 MLS/HR Loratadine/ Pseudoephedrine Sulfate (Claritin-D 24 Hour Tab) 1 tab QAM PO 04/03/18 09:00 05/03/18 08:59 Ondansetron HCl (Zofran Inj) 4 mg ONE PRN IV 04/02/18 12:30 04/02/18 17:30 Atropine Sulfate (Atropine Sulfate 0.1mg/ml Inj) 0.5 mg Q1M PRN IV 04/02/18 12:30 04/02/18 17:30 Fentanyl Citrate (Fentanyl Inj) 25 mcg Q5M PRN IV 04/02/18 12:30 04/02/18 17:30 Ketorolac Tromethamine (Toradol Inj) 30 mg ONE PRN IV. 04/02/18 12:30 04/02/18 17:30 Review of Systems All systems were reviewed and are negative except as per HPI Physical Exam Date Time Temp Pulse Resp B/P (MAP) Pulse Ox O2 Delivery O2 Flow Rate FiO2 04/02/18 13:15 77 22 138/63 96 Room Air 04/02/18 13:05 36.1 90 22 141/56 96 Room Air 04/02/18 11:15 36.7 86 20 138/78 (98) 97 Room Air 04/02/18 08:25 96 Room Air 04/02/18 07:45 Room Air 04/02/18 07:37 36.8 68 18 148/86 (106) 96 Room Air 04/02/18 02:05 Room Air 04/02/18 01:47 36.7 77 16 132/71 95 Room Air 04/02/18 00:45 36.6 88 18 151/64 Room Air 04/01/18 22:59 37.2 84 20 147/60 97 Room Air 04/01/18 21:40 38.4 04/01/18 21:38 94 18 144/67 96 Room Air 04/01/18 19:51 38.3 97 18 145/78 96 Room Air General Appearance: WD/WN, no apparent distress Head: normocephalic, atraumatic Eyes: normal inspection, EOMI, sclerae normal ENT: normal ENT inspection, hearing grossly normal, pharynx normal Neck: supple, no adenopathy, thyroid normal, trachea midline Respiratory/Chest: chest non-tender, lungs clear, normal breath sounds, no respiratory distress Cardiovascular: regular rate, rhythm, no gallop, no murmur Abdomen/GI: normal bowel sounds, non tender, soft, no organomegaly Back: normal inspection, no CVA tenderness Extremities/Musculoskelatal: no calf tenderness, normal capillary refill, + inflammation (Left knee), + swelling (Left a) Neurologic/Psych: alert, oriented x 3 Skin: normal color, no rash, + pertinent finding (Erythema overlying left knee) Lymphatic: no adenopathy Laboratory Results Date/Time Source Procedure Growth Status 04/01/18 20:40 Blood Blood Culture Pending Received 04/01/18 20:40 Blood Blood Culture Pending Received 04/02/18 00:00 Abscess Knee Left Gram Stain Pending Received 04/02/18 00:00 Abscess Knee Left Bacterial Culture Pending Received 04/01/18 22:20 Aspirate - Other Knee Left Gram Stain - Final Resulted 04/01/18 22:20 Aspirate - Other Knee Left Bacterial Culture Pending Resulted Last 24 Hours Test 04/01/18 20:30 04/01/18 20:40 04/01/18 22:20 04/02/18 05:50 White Blood Count 12.46 K/uL Red Blood Count 5.28 M/uL Hemoglobin 15.0 g/dL Hematocrit 45.1 % Mean Corpuscular Volume 85.4 fL Mean Corpuscular Hemoglobin 28.4 pg Mean Corpuscular Hemoglobin Concent 33.3 g/dl Platelet Count 236 K/uL Mean Platelet Volume 11.3 fL Neutrophils (%) (Auto) 74.6 % Lymphocytes (%) (Auto) 17.0 % Monocytes (%) (Auto) 6.2 % Eosinophils (%) (Auto) 1.8 % Basophils (%) (Auto) 0.2 % Neutrophils # (Auto) 9.30 K/uL Lymphocytes # (Auto) 2.12 K/uL Monocytes # (Auto) 0.77 K/uL Eosinophils # (Auto) 0.22 K/uL Basophils # (Auto) 0.02 K/uL RDW Standard Deviation 43.1 fL RDW Coefficient of Variation 13.9 % Immature Granulocyte % (Auto) 0.2 % Immature Granulocyte # (Auto) 0.03 K/uL Erythrocyte Sedimentation Rate 42 mm/hr Sodium Level 136 mmol/L Potassium Level 3.9 mmol/L Chloride Level 102 mmol/L Carbon Dioxide Level 28 mmol/L Anion Gap 6.0 mmol/L Blood Urea Nitrogen 12 mg/dl Creatinine 1.06 mg/dl Est Creatinine Clear Calc Drug Dose 157.7 ml/min Estimated GFR () 117.3 Estimated GFR (Non- 101.2 BUN/Creatinine Ratio 10.8 Random Glucose 88 mg/dl Calcium Level 9.2 mg/dl Magnesium Level 1.9 mg/dl Total Bilirubin 0.4 mg/dl Direct Bilirubin 0.1 mg/dl Aspartate Amino Transf (AST/SGOT) 23 U/L Alanine Aminotransferase (ALT/SGPT) 29 U/L Alkaline Phosphatase 96 U/L C-Reactive Protein 7.93 mg/dl Total Protein 7.8 gm/dl Albumin 3.6 gm/dl Lipase 104 U/L Thyroid Stimulating Hormone (TSH) 2.920 uIu/ml Lyme Disease IgG Antibody POS Lyme Disease IgM Antibody NEG Lactic Acid Level 0.8 mmol/L Synovial Fluid Source KNEE Synovial Fluid Color RED Synovial Fluid Appearance MUCOID Synovial Fluid WBC 317076 /uL Synovial Fluid RBC 470805 /uL Synovial Fluid Polynuclear WBCs % 98.7 % Synovial Fluid Mononuclear WBCs % 1.3 % Prothrombin Time 10.5 SECONDS Prothromb Time International Ratio 1.0 Activated Partial Thromboplast Time 32.1 SECONDS Partial Thromboplastin Ratio 1.2 Patient Name: AYANA GARZA Unit Number: [id number] Dictated: 04/02/18641 Transcribed: 04/02/18641 JA Printed Date/Time: [~ rep prt dt]/[~ rep prt tm] [~ rep ct labl] - [~ rep ct ivnm] [facility] [place] [address] Dictated: 04/02/18641 Transcribed: 04/02/18641 JA Printed Date/Time: [~ rep prt dt]/[~ rep prt tm] [~ rep ct labl] - [~ rep ct ivnm] LEFT LOWER EXTREMITY VENOUS DOPPLER CLINICAL HISTORY: Left lower extremity swelling. COMPARISON STUDY: None. TECHNIQUE: Sonography of the deep venous system of the left lower extremity was performed. Compression and augmentation were evaluated. FINDINGS: The left common femoral, superficial femoral and popliteal veins were compressible. Augmentation was normal. Flow was shown within the deep calf vessels. No is made of prominent left inguinal lymph nodes that measure up to 4.7 x 1.2 centimeters. These nodes contain a fatty hilum. IMPRESSION: 1. No evidence of deep venous thrombus within the left lower extremity. 2. Prominent left inguinal lymph nodes. Although mildly enlarged, these nodes have benign imaging characteristics. A follow-up ultrasound in 3 months could be obtained. Electronically signed by: Srinivas Enrique M.D. 04/02/2018 6:44 AM Dictated Date/Time: 04/02/2018 6:42 AM The status of this report is Signed. Draft = Not yet reviewed or approved by Radiologist. Signed = Reviewed and approved by Radiologist. <AttendingPhy>Meño Arora M.D.</AttendingPhy> <FamilyPhy>Kedar Bahena M.D.</FamilyPhy> <PrimaryPhy>Pilvaibhav, Kedar A.,M.D.</PrimaryPhy> <UnitNumber> [id number]</UnitNumber> <VisitNumber>[id number]</VisitNumber> <PatientName> AYANA GARZA</PatientName> <DateOfBirth>2000</DateOfBirth> <Location >[facility]</Location> <ServiceDate>04/01/18</ServiceDate> <MNE>ESINDI</MNE> < OrderingPhy>Jose Mims M.D.</OrderingPhy> <OrderingPhyMNE>f rep ord dr queen </OrderingPhyMNE> <DictatingPhyMNE>f rep dict dr queen</DictatingPhyMNE> < CCListMNE>f rep ct teofiloe</CCListMNE> <AdmittingPhyMNE>f pt admit dr queen</ AdmittingPhyMNE> <AttendingPhyMNE>f pt attend dr queen</AttendingPhyMNE> <ConsultingPhyMNE>f pt consult dr queen</ConsultingPhyMNE> <FamilyPhyMNE>f pt fam dr queen</FamilyPhyMNE> <OtherPhyMNE>f pt other dr queen</OtherPhyMNE> < PrimaryPhyMNE>f pt prim care dr queen</PrimaryPhyMNE> <ReferringPhyMNE>f pt referring dr queen</ReferringPhyMNE> Assessment & Plan Left knee infection, suspect septic prepatellar bursitis most likely staphylococcal, awaiting results of incision and drainage this morning. Will be continued on vancomycin pending above results. Will follow.
--- NOTE | 2018-04-02 13:51 | Anesthesiology Progress Note ---
Anesthesia Post Op Note Date & Time Apr 02, 2018 at 13:51 Vital Signs Pain Intensity: 3 Vital Signs Past 12 Hours Date Time Temp Pulse Resp B/P (MAP) Pulse Ox O2 Delivery O2 Flow Rate FiO2 04/02/18 13:45 36.5 95 19 132/82 96 Room Air 04/02/18 13:35 80 17 118/75 99 Room Air 04/02/18 13:25 78 16 138/75 98 Room Air 04/02/18 13:15 77 22 138/63 96 Room Air 04/02/18 13:05 36.1 90 22 141/56 96 Room Air 04/02/18 11:15 36.7 86 20 138/78 (98) 97 Room Air 04/02/18 08:25 96 Room Air 04/02/18 07:45 Room Air 04/02/18 07:37 36.8 68 18 148/86 (106) 96 Room Air 04/02/18 02:05 Room Air Notes Mental Status: alert / awake / arousable, participated in evaluation Pt Amnestic to Procedure: Yes Nausea / Vomiting: adequately controlled Pain: adequately controlled Airway Patency, RR, SpO2: stable & adequate BP & HR: stable & adequate Hydration State: stable & adequate Anesthetic Complications: no major complications apparent
--- NOTE | 2018-04-02 17:34 | Progress Note ---
Progress Note Date of Service Apr 02, 2018. Progress Note Subjective Patient s/p return from operating room for left knee prepatellar bursitis drainage. Patient has wound vac. Patient denies acute pain or shortness of breath. Patient denies abdominal pain. Physical Exam General: verbal, answers to questions appropriately but has trouble focusing on topic at hand and often switches the focus of the conversation Lungs: CTABL Heart: regular rate Abdomen: soft nontender, positive bowel sounds Extremities: left knee with wound vac Neuro: awake and alert, can move toes of both legs bilaterally Assessment and Plan Sepsis secondary to left knee swelling currently on vancomycin had arthrocentesis in the emergency room on 04/01/18 with elevated synovial WBC and gram positive cocci on gram stain that is now speciating as staph species has been on vancomycin empirically, will continue s/p left knee prepatellar bursitis drainage with wound vac on 04/02/18 by orthopedic service Infectious disease consult service following the patient Pain control medications Abnormal Lyme screen (IgG positive) but negative IgM suggestive of past Lyme exposure Mood disorder, OCD as per records High functioning autism as per records patient's mother reports patient has in the past been on medications for anxiety but he does not take at home ongoing tobacco use Nicotine patch. DVT prophylaxis: SCDs Full code. Mother Vianney [phone]
[2018-04-02] MEDS: LORAZEPAM INJ 0.5 MG in SYRINGE 0.75 ML IV PRN (20:20)
[2018-04-02] MEDS ORDERED: NURSING VERBAL MED ORDER ONE (20:45)
[2018-04-02] MEDS: NICOTINE 21 MG/24 HR TDSY TD SCH (22:46)
[2018-04-03] MEDS: LORAZEPAM INJ 0.5 MG in SYRINGE 0.75 ML IV PRN ×3 (02:12→21:11)
[2018-04-03 02:46] VITALS: BP 126/89; PULSE 88; TEMP 36.7; O2SAT 98
[2018-04-03] MEDS ORDERED: VANCOMYCIN TROUGH ONE (05:30)
[2018-04-03] MEDS: VANCOMYCIN IV 1,750 MG in SODIUM CHLORIDE 0.9% 500ML 500 ML IV SCH (05:35)
[2018-04-03 05:55] LABS: EOS % 0.1 %; EOS ABS # 0.01 K/uL (0-0.5); HEMATOCRIT 41.5 % (42-52); HEMOGLOBIN 13.7 g/dL (14.0-18.0); IG# 0.03 K/uL (0.00-0.02); LYMPH % 12.5 %; LYMPH ABS # 1.42 K/uL (1.2-3.4); MEAN CELL VOLUME 85.6 fL (80-100); MEAN CORPUSCULAR HEMOGLOBIN 28.2 pg (25-34); MEAN PLATELET VOLUME 11.4 fL (7.4-10.4); MONO % 6.3 %; MONO ABS # 0.71 K/uL (0.11-0.59); NEUT % 80.8 %; NEUT ABS # 9.18 K/uL (1.4-6.5); PLATELET COUNT 257 K/uL (130-400); RED CELL DISTRIBUTION WIDTH CV 13.8 % (11.5-14.5); RED CELL DISTRIBUTION WIDTH SD 43.2 fL (36.4-46.3); WHITE BLOOD COUNT 11.35 K/uL (4.8-10.8)
[2018-04-03 06:23] LABS: CREATININE 0.78 mg/dl (0.60-1.40)
[2018-04-03 07:46] VITALS: BP 116/54; PULSE 60; TEMP 36.6; O2SAT 95
--- NOTE | 2018-04-03 07:56 | Anesthesiology Progress Note ---
Anesthesia Post Op Note Date & Time Apr 03, 2018 at 07:56 Vital Signs Pain Intensity: 0.0 Vital Signs Past 12 Hours Date Time Temp Pulse Resp B/P (MAP) Pulse Ox O2 Delivery O2 Flow Rate FiO2 04/03/18 07:46 36.6 60 20 116/54 (74) 95 Room Air 04/03/18 02:46 36.7 88 16 126/89 (101) 98 Room Air 04/02/18 23:05 Room Air 04/02/18 22:55 36.6 87 16 124/74 (91) 96 Room Air 04/02/18 20:00 36.8 96 20 127/69 (88) 95 Room Air Notes Mental Status: alert / awake / arousable, participated in evaluation Pt Amnestic to Procedure: Yes Nausea / Vomiting: adequately controlled Pain: adequately controlled Airway Patency, RR, SpO2: stable & adequate BP & HR: stable & adequate Hydration State: stable & adequate Anesthetic Complications: no major complications apparent
[2018-04-03 08:17] VITALS: O2SAT 95
[2018-04-03] MEDS: LORATADINE/PSEUDOEPHEDRINE 1 TAB TABCR PO SCH (08:49)
[2018-04-03] MEDS: ENOXAPARIN 40 MG/0.4 ML SYR SQ SCH (08:49)
--- NOTE | 2018-04-03 11:46 | Orthopedic Progress Note ---
Orthopedic Progress Note Date of Service Apr 03, 2018. Subjective Post OP Day: 1 Reports: feeling well Additional Notes: Pt was somewhat adamant that he was going home today. States he feels much better today. No complaints. Pt's main complaint is that he "needs a chew". Does not want a nicotine patch. Discussed that he may need to stay an additional day. Objective calves soft nontender, N/V intact, dressing C/D/I, A&O x3, toes mobile, hemovac drainage (10ml latest shift) Less erythema and swelling. Prevena intact without much in the way of drainage. Date Time Temp Pulse Resp B/P (MAP) Pulse Ox O2 Delivery O2 Flow Rate FiO2 04/03/18 08:17 95 Room Air 04/03/18 07:50 Room Air 04/03/18 07:46 36.6 60 20 116/54 (74) 95 Room Air 04/03/18 02:46 36.7 88 16 126/89 (101) 98 Room Air 04/02/18 23:05 Room Air 04/02/18 22:55 36.6 87 16 124/74 (91) 96 Room Air 04/02/18 20:00 36.8 96 20 127/69 (88) 95 Room Air 04/02/18 17:05 36.5 90 20 118/57 (77) 96 Room Air 04/02/18 16:04 36.5 73 20 109/72 (84) 95 Room Air 04/02/18 15:30 93 Room Air 04/02/18 15:03 70 18 103/68 (80) 93 Room Air 04/02/18 14:35 67 18 109/69 (82) 93 Room Air 04/02/18 14:05 Room Air 04/02/18 14:05 93 Room Air 04/02/18 14:05 36.8 81 18 125/80 (95) 93 Room Air 04/02/18 13:55 88 19 138/77 96 Room Air 04/02/18 13:45 36.5 95 19 132/82 96 Room Air 04/02/18 13:35 80 17 118/75 99 Room Air 04/02/18 13:25 78 16 138/75 98 Room Air 04/02/18 13:15 77 22 138/63 96 Room Air 04/02/18 13:05 36.1 90 22 141/56 96 Room Air Laboratory Results 24 Hours: Test 04/03/18 05:31 White Blood Count 11.35 K/uL Red Blood Count 4.85 M/uL Hemoglobin 13.7 g/dL Hematocrit 41.5 % Mean Corpuscular Volume 85.6 fL Mean Corpuscular Hemoglobin 28.2 pg Mean Corpuscular Hemoglobin Concent 33.0 g/dl Platelet Count 257 K/uL Mean Platelet Volume 11.4 fL Neutrophils (%) (Auto) 80.8 % Lymphocytes (%) (Auto) 12.5 % Monocytes (%) (Auto) 6.3 % Eosinophils (%) (Auto) 0.1 % Basophils (%) (Auto) 0.0 % Neutrophils # (Auto) 9.18 K/uL Lymphocytes # (Auto) 1.42 K/uL Monocytes # (Auto) 0.71 K/uL Eosinophils # (Auto) 0.01 K/uL Basophils # (Auto) 0.00 K/uL Additional Notes: RUN DATE: 04/03/18 [facility] LAB PAGE 1 RUN TIME: 943 Specimen Inquiry PATIENT: KAYLA,KAALFREDANA Karin LOC: [facility] U # : [id number] AGE/SX: 17/M ROOM: [facility] REG : 04/02/[address]: Meño Arora M.D. : 2000 BED: 2 DIS : STATUS: ADM IN TLOC: SPEC #: [id number] EDEL: 04/01/18 STATUS: RES REQ #: [id number] RECD: 04/01/[address]: Xu Herbert M.D. SOURCE: ASP-OTHER ENTR: 04/01/[address]: Jose Mims M.D. SPDESC: KNEE LEFT Pilgram, Kedar Perez M.D. ORDERED: AER/TIFFANIE CULTSMR COMMENTS: Specimen Comment Prepattelar bursa Has Specimen Been Obtained/Collected? Y Procedure Result Verified Site GRAM STAIN Final 04/02/18 RESULT MANY WBCs SEEN MANY GRAM POSITIVE COCCI OR AER/TIFFANIE CULT Preliminary 04/03/18 Organism 1 STAPHYLOCOCCUS AUREUS QUANITY MODERATE SENS SENSITIVITY TO FOLLOW 1. STAPHYLOCOCCUS AUREUS Target Route Dose RX AB Cost M.I.C. IQ ------ ----- ------ -- ------ -------- - ------ TRIMET/SULFA S <=0.5/ 9.5 * OXACILLIN S <=0.25 VANCOMYCIN S 2 ERYTHROMYCIN R >4 TETRACYCLINE S <=4 CLINDAMYCIN R <=0.5 DAPTOMYCIN S <=0.5 S = SENSITIVE I = INTERMEDIATE R = RESISTANT Assessment & Plan Assessment: POD 1 s/p Irrigation and debridement left knee abscess Plan: Much improved. Ambulating without pain.- Antibiotics as per ID/Med Service No further washout planned currently (1) Abscess of leg, left Inhouse Planning Pain Management: Ultram, Morphine DVT Prophylaxis: Lovenox
[2018-04-03 11:59] VITALS: BP 118/64; PULSE 68; TEMP 36.8; O2SAT 96
--- NOTE | 2018-04-03 12:21 | Pharmacy Progress Note ---
Pharmacy Abx Dose Short Note Date of Service Apr 03, 2018. Assessment & Plan Assessment * 17 year old male receiving VANCOMYCIN for treatment of cellulitis * Day # 12/18 of antimicrobial therapy Plan Vancomycin * Trough level of 12.6 mcg/mL is therapeutic; however, patient's kidney function is improving * new PK parameters: Vd ~0.52 L/kg, ke ~0.09 hr-1, t1/2 ~8hr * Change to 2000 mg IV every 8 hours * Goal trough level: 10 to 20 mcg/mL * Trough or random level ordered for: 04/04/18 at 1330 Pharmacy will continue to follow and will adjust dose/frequency as necessary. Thank you.
--- NOTE | 2018-04-03 13:12 | Consultant Recommendations ---
Neon Sign Mechanic Recommendations Date of Service Apr 03, 2018. Neon Sign Mechanic Recommendations Change the dressing that is covering the drain site daily. After 1 week, you may leave it to the open air if it is not draining. Keep the purple sponge dressing with the tube on for 1 week. See the instructions below for this dressing. Prevena- This is a large suction dressing covering your incision. This will help pull any excess drainage from the wound and allow your incision to heal properly. You may shower with this if you can keep the unit outside of the shower. If any bleeding or leakage is noted please call your doctor's office. This will remain on your incision for 7 days and then should be removed. This can be done yourself or by the home nursing staff if applicable. The entire unit is disposable once removed. Once removed, keep incision clean and dry. If redness or drainage is noted, please call your surgeon. Keep gauze over the main wound until seen back in the office. You may use an matthew wrap to to keep the dressing in place. You can be weightbearing as tolerated. Gentle range of motion the knee is allowed. Follow up with Dr Powell in 1 week. Call for an appointment. Please call the office if you are having fever of 101 or greater, chills, nausea /vomitting, increased redness or swelling of the wound or knee. [phone]
[2018-04-03] MEDS ORDERED: VANCOMYCIN IV 2,000 MG in SODIUM CHLORIDE 0.9% 500ML 500 ML IV SCH (14:00)
[2018-04-03 15:15] VITALS: BP 134/76; PULSE 72; TEMP 36.5; O2SAT 98
[2018-04-03] MEDS: CEFAZOLIN IV 2,000 MG in SYRINGE 0 ML IV SCH ×2 (15:30→23:37)
--- NOTE | 2018-04-03 15:32 | Infectious Disease Progress Nt ---
Progress Note Date of Service Apr 03, 2018. Subjective Pt evaluation today including: conversation w/ patient, physical exam, chart review, lab review, review of studies, conversation w/ design center consultant, review of inpatient medication list Patient had superficial abscess drained by orthopedics yesterday. Purulent fluid noted. Cultures growing methicillin sensitive staph aureus. Pain improved today, remains afebrile, redness decreasing. No other new complaints. All Other Systems: Reviewed and Negative Medications Current Inpatient Medications Medications (Trade) Dose Ordered Sig/Rhona Route Start Time Stop Time Status Last Admin Dose Admin Enoxaparin Sodium (Lovenox Inj) 40 mg Q24H SQ 04/02/18 09:00 05/02/18 08:59 04/03/18 08:49 40 MG Acetaminophen (Tylenol Tab) 650 mg Q4H PRN PO 04/02/18 00:45 05/02/18 00:44 Ketorolac Tromethamine (Toradol Inj) 30 mg Q6H PRN IV 04/02/18 00:45 04/07/18 00:44 Ibuprofen (Advil Tab) 400 mg Q6H PRN PO 04/02/18 00:45 05/02/18 00:44 Tramadol HCl (Ultram Tab) not relieved by tylenol @ Q6H PRN PO 04/02/18 00:45 05/02/18 00:44 Morphine Sulfate (MoRPHine SULFATE INJ) 4 mg Q6H PRN IV 04/02/18 00:45 04/16/18 00:44 Lorazepam 0.5 mg/ Syringe 1 ml @ 1 mls/min Q4H PRN IV 04/02/18 02:30 05/02/18 02:29 04/03/18 13:04 1 MLS/MIN Loratadine/ Pseudoephedrine Sulfate (Claritin-D 24 Hour Tab) 1 tab QAM PO 04/03/18 09:00 05/03/18 08:59 04/03/18 08:49 1 TAB Nicotine (Nicoderm Cq 21MG Patch) 1 patch DAILY@2200 TD 04/02/18 22:00 05/02/18 21:59 04/02/18 22:46 1 PATCH Miscellaneous (Remove Nicoderm Patch) 1 ea DAILY@2159 N/A 04/03/18 21:59 05/03/18 21:58 Cefazolin Sodium 2000 mg/Syringe 15 ml @ 3.75 mls/ min Q8H IV 04/03/18 16:00 04/13/18 14:14 Objective Vital Signs Date Time Temp Pulse Resp B/P (MAP) Pulse Ox O2 Delivery O2 Flow Rate FiO2 04/03/18 15:15 36.5 72 18 134/76 (95) 98 Room Air 04/03/18 11:59 36.8 68 20 118/64 (82) 96 Room Air 04/03/18 08:17 95 Room Air 04/03/18 07:50 Room Air 04/03/18 07:46 36.6 60 20 116/54 (74) 95 Room Air 04/03/18 02:46 36.7 88 16 126/89 (101) 98 Room Air 04/02/18 23:05 Room Air 04/02/18 22:55 36.6 87 16 124/74 (91) 96 Room Air 04/02/18 20:00 36.8 96 20 127/69 (88) 95 Room Air 04/02/18 17:05 36.5 90 20 118/57 (77) 96 Room Air 04/02/18 16:04 36.5 73 20 109/72 (84) 95 Room Air Physical Exam General Appearance: WD/WN, no apparent distress Eyes: normal inspection, EOMI, sclerae normal ENT: normal ENT inspection, hearing grossly normal, pharynx normal Neck: supple, no adenopathy, thyroid normal, trachea midline Respiratory/Chest: chest non-tender, lungs clear, normal breath sounds, no respiratory distress Cardiovascular: regular rate, rhythm, no gallop, no murmur Abdomen: normal bowel sounds, non tender, soft, no organomegaly Extremities: non-tender, no pedal edema, no calf tenderness Neurologic/Psychiatric: alert, oriented x 3 Skin: normal color, warm/dry, no rash, + pertinent finding (Improving right leg erythema) Lymphatic: no adenopathy Laboratory Results RUN DATE: 04/03/18 [facility] LAB PAGE 1 RUN TIME: 1338 Specimen Inquiry PATIENT: AYANA GARZA [facility] [place] # : [id number] AGE/SX: 17/M ROOM: [facility] REG : 04/02/[address]: Meño Arora M.D. : 2000 BED: 2 DIS : STATUS: ADM IN TLOC: SPEC #: [id number] EDEL: 04/01/18 STATUS: RES REQ #: [id number] RECD: 04/01/[address]: Xu Herbert M.D. SOURCE: ASP-OTHER ENTR: 04/01/18 [facility] DR: Jose Mims M.D. SPDESC: KNEE LEFT PilgramKedar M.D. ORDERED: AER/TIFFANIE CULTSMR COMMENTS: Specimen Comment Prepattelar bursa Has Specimen Been Obtained/Collected? Y Procedure Result Verified Site GRAM STAIN Final 04/02/18-708 RESULT MANY WBCs SEEN MANY GRAM POSITIVE COCCI OR AER/TIFFANIE CULT Preliminary 04/03/18-8 Organism 1 STAPHYLOCOCCUS AUREUS QUANITY MODERATE SENS SENSITIVITY TO FOLLOW 1. STAPHYLOCOCCUS AUREUS Target Route Dose RX AB Cost M.I.C. IQ ------ ----- ------ -- ------ -------- - ------ TRIMET/SULFA S <=0.5/ 9.5 * OXACILLIN S <=0.25 VANCOMYCIN S 2 ERYTHROMYCIN R >4 TETRACYCLINE S <=4 CLINDAMYCIN R <=0.5 DAPTOMYCIN S <=0.5 S = SENSITIVE I = INTERMEDIATE R = RESISTANT Last 24 Hours Test 04/03/18 05:31 White Blood Count 11.35 K/uL Red Blood Count 4.85 M/uL Hemoglobin 13.7 g/dL Hematocrit 41.5 % Mean Corpuscular Volume 85.6 fL Mean Corpuscular Hemoglobin 28.2 pg Mean Corpuscular Hemoglobin Concent 33.0 g/dl Platelet Count 257 K/uL Mean Platelet Volume 11.4 fL Neutrophils (%) (Auto) 80.8 % Lymphocytes (%) (Auto) 12.5 % Monocytes (%) (Auto) 6.3 % Eosinophils (%) (Auto) 0.1 % Basophils (%) (Auto) 0.0 % Neutrophils # (Auto) 9.18 K/uL Lymphocytes # (Auto) 1.42 K/uL Monocytes # (Auto) 0.71 K/uL Eosinophils # (Auto) 0.01 K/uL Basophils # (Auto) 0.00 K/uL RDW Standard Deviation 43.2 fL RDW Coefficient of Variation 13.8 % Immature Granulocyte % (Auto) 0.3 % Immature Granulocyte # (Auto) 0.03 K/uL Creatinine 0.78 mg/dl Est Creatinine Clear Calc Drug Dose 220.8 ml/min Estimated GFR () > 150.0 Estimated GFR (Non- 130.9 Vancomycin Level Trough 12.6 mcg/ml Assessment and Plan (1) Abscess of leg, left Status: Acute Left knee infection, suspect septic prepatellar bursitis most likely staphylococcal, now status post incision and drainage. Cultures growing methicillin sensitive staph aureus. I think the patient could be safely transitioned to oral Bactrim 1 DS twice daily, likely in the range of 2 weeks. Would like to see 7-10 days and follow-up as an outpatient.
--- NOTE | 2018-04-03 17:56 | Progress Note ---
Progress Note Date of Service Apr 03, 2018. Progress Note Subjective Patient denies acute pain or shortness of breath. Patient denies abdominal pain. Had been walking with wound the wound vac Physical Exam General: verbal, answers to questions appropriately but has trouble focusing on topic at hand and often switches the focus of the conversation Lungs: CTABL Heart: regular rate Abdomen: soft nontender, positive bowel sounds Extremities: left knee with dressing Neuro: awake and alert, can move toes of both legs bilaterally Assessment and Plan Sepsis secondary to left knee swelling was initially on vancomycin had arthrocentesis in the emergency room on 04/01/18 with elevated synovial WBC and gram positive cocci on gram stain that is now speciating as MSSA s/p left knee prepatellar bursitis drainage with wound vac on 04/02/18 by orthopedic service Infectious disease consult recommended that patient be switched from vancomycin to cefazolin 2 grams q8 hours Also then recommended that patient could be transitioned to oral Bactrim 1 DS twice daily, likely in the range of 2 weeks. will plan to start oral bactrim on 04/04/18 after re-evaluation tomorrow Pain control medications Abnormal Lyme screen (IgG positive) but negative IgM suggestive of past Lyme exposure Mood disorder, OCD as per records High functioning autism as per records patient's mother reports patient has in the past been on medications for anxiety but he does not take at home ongoing tobacco use Nicotine patch. DVT prophylaxis: SCDs Full code. Mother Vianney [phone]
[2018-04-03] MEDS: NICOTINE 21 MG/24 HR TDSY TD SCH (20:49)
[2018-04-03 23:35] VITALS: BP 143/74; PULSE 69; TEMP 36.6; O2SAT 97
[2018-04-04] MEDS: LORAZEPAM INJ 0.5 MG in SYRINGE 0.75 ML IV PRN (01:42)
[2018-04-04 04:29] LABS: CREATININE 0.86 mg/dl (0.60-1.40)
--- NOTE | 2018-04-04 07:36 | Progress Note ---
Internal Med Progress Note Date of Service: Apr 04, 2018. Provider Documentation: Subjective Patient denies acute pain or shortness of breath. Patient denies abdominal pain. Is ambulatory Physical Exam General: verbal, answers to questions appropriately but has trouble focusing on topic at hand and often switches the focus of the conversation Lungs: CTABL Heart: regular rate Abdomen: soft nontender, positive bowel sounds Extremities: left knee with dressing Neuro: awake and alert, ambulatory ASSESSMENT & PLAN: Hospital Course and Discharge Plans Sepsis secondary to left knee infection was initially on vancomycin had arthrocentesis in the emergency room on 04/01/18 with elevated synovial WBC and gram positive cocci on gram stain that is now speciating as MSSA s/p left knee prepatellar bursitis drainage with wound vac on 04/02/18 by orthopedic service Infectious disease consult recommended that patient be switched from vancomycin to cefazolin 2 grams q8 hours Also then recommended that patient could be transitioned to oral Bactrim 1 DS twice daily, likely in the range of 2 weeks. will plan to start oral bactrim on 04/04/18 after re-evaluation tomorrow Abnormal Lyme screen (IgG positive) but negative IgM suggestive of past Lyme exposure Lyme Western Blot pending PCR of synovial fluid negative for Lyme Mood disorder, Obsessive compulsive disorder and autism as per records Anxiety as per family members but non adherent on medications Ongoing tobacco use Nicotine patch offered Smoking cessation counseling offered Discharge Instructions Patient will be discharged with prescription of oral bactrim twice daily for 2 weeks Patient should follow with primary care doctor Sunday04/08/18 at 12:[address] Harrell [address] [place] [address] [place] [address] Patient should follow up with infectious disease Dr. Joseph Kemp in 7 to 10 days [facility] [address], [address] [place] [address] Patient should follow up with orthopedics Dr Bryan Powell in 1 week and follow instructions as listed below Discharge Instructions from Orthopedics: Change the dressing that is covering the drain site daily. After 1 week, you may leave it to the open air if it is not draining. Keep the purple sponge dressing with the tube on for 1 week. See the instructions below for this dressing. Prevena- This is a large suction dressing covering your incision. This will help pull any excess drainage from the wound and allow your incision to heal properly. You may shower with this if you can keep the unit outside of the shower. If any bleeding or leakage is noted please call your doctor's office. This will remain on your incision for 7 days and then should be removed. This can be done yourself or by the home nursing staff if applicable. The entire unit is disposable once removed. Once removed, keep incision clean and dry. If redness or drainage is noted, please call your surgeon. Keep gauze over the main wound until seen back in the office. You may use an matthew wrap to to keep the dressing in place. You can be weightbearing as tolerated. Gentle range of motion the knee is allowed. Follow up with Dr Powell in 1 week. Call for an appointment. Please call the office if you are having fever of 101 or greater, chills, nausea /vomitting, increased redness or swelling of the wound or knee. [phone] Vital Signs: Date Time Temp Pulse Resp B/P (MAP) Pulse Ox O2 Delivery O2 Flow Rate FiO2 04/04/18 09:20 36.3 53 17 134/80 (98) 96 Room Air 04/04/18 09:00 Room Air 04/03/18 23:35 36.6 69 16 143/74 (97) 97 Room Air 04/03/18 23:25 Room Air 04/03/18 15:45 Room Air 04/03/18 15:15 36.5 72 18 134/76 (95) 98 Room Air 04/03/18 11:59 36.8 68 20 118/64 (82) 96 Room Air Lab Results: Results Past 24 Hours Test 04/04/18 03:35 Range/Units Creatinine 0.86 0.60-1.40 mg/dl Est Creatinine Clear Calc Drug Dose 200.3 ml/min Estimated GFR () 145.7 Estimated GFR (Non- 125.7
[2018-04-04] MEDS ORDERED: SULFAMETHOXAZOLE/TRIMETHOPRIM DS 800/160MG TAB PO SCH (09:00)
[2018-04-04] MEDS: ENOXAPARIN 40 MG/0.4 ML SYR SQ SCH (09:00)
[2018-04-04] MEDS ORDERED: SULF-302 PO (09:15)
[2018-04-04] MEDS ORDERED: NICO21DI4 TD (09:15)
[2018-04-04] MEDS ORDERED: IBUP-1050 PO (09:15)
[2018-04-04] MEDS: LORATADINE/PSEUDOEPHEDRINE 1 TAB TABCR PO SCH (09:18)
[2018-04-04 09:20] VITALS: BP 134/80; PULSE 53; TEMP 36.3; O2SAT 96
[2018-04-04] MEDS ORDERED: [UNRECOGNIZED DRUG - CODE] TD ×2 (09:20→09:21)
[2018-04-04] MEDS: CEFAZOLIN IV 2,000 MG in SYRINGE 0 ML IV SCH (09:21)
--- NOTE | 2018-04-04 10:15 | Infectious Disease Progress Nt ---
Progress Note Date of Service Apr 04, 2018. Subjective Pt evaluation today including: conversation w/ patient, physical exam, chart review, lab review, review of studies, conversation w/ specialty sales consultant, review of inpatient medication list Patient offering no complaints today. Pain controlled. Remains afebrile. Tolerating antibiotic without apparent difficulty. All Other Systems: Reviewed and Negative Medications Current Inpatient Medications Medications (Trade) Dose Ordered Sig/Rhona Route Start Time Stop Time Status Last Admin Dose Admin Enoxaparin Sodium (Lovenox Inj) 40 mg Q24H SQ 04/02/18 09:00 05/02/18 08:59 04/03/18 08:49 40 MG Acetaminophen (Tylenol Tab) 650 mg Q4H PRN PO 04/02/18 00:45 05/02/18 00:44 Ketorolac Tromethamine (Toradol Inj) 30 mg Q6H PRN IV 04/02/18 00:45 04/07/18 00:44 Ibuprofen (Advil Tab) 400 mg Q6H PRN PO 04/02/18 00:45 05/02/18 00:44 04/03/18 19:55 400 MG Tramadol HCl (Ultram Tab) not relieved by tylenol @ Q6H PRN PO 04/02/18 00:45 05/02/18 00:44 Morphine Sulfate (MoRPHine SULFATE INJ) 4 mg Q6H PRN IV 04/02/18 00:45 04/16/18 00:44 Lorazepam 0.5 mg/ Syringe 1 ml @ 1 mls/min Q4H PRN IV 04/02/18 02:30 05/02/18 02:29 04/04/18 01:42 1 MLS/MIN Loratadine/ Pseudoephedrine Sulfate (Claritin-D 24 Hour Tab) 1 tab QAM PO 04/03/18 09:00 05/03/18 08:59 04/04/18 09:18 1 TAB Nicotine (Nicoderm Cq 21MG Patch) 1 patch DAILY@2200 TD 04/02/18 22:00 05/02/18 21:59 04/02/18 22:46 1 PATCH Miscellaneous (Remove Nicoderm Patch) 1 ea DAILY@2159 N/A 04/03/18 21:59 05/03/18 21:58 04/03/18 20:50 1 EA Cefazolin Sodium 2000 mg/Syringe 15 ml @ 3.75 mls/ min Q8H IV 04/03/18 16:00 04/13/18 14:14 04/04/18 09:21 3.75 MLS/MIN Trimethoprim/ Sulfamethoxazole (Septra Ds 800/ 160MG Tab) 1 tab Q12 PO 04/04/18 09:00 04/14/18 08:59 04/04/18 09:21 1 TAB Objective Vital Signs Date Time Temp Pulse Resp B/P (MAP) Pulse Ox O2 Delivery O2 Flow Rate FiO2 04/04/18 09:20 36.3 53 17 134/80 (98) 96 Room Air 04/04/18 09:00 Room Air 04/03/18 23:35 36.6 69 16 143/74 (97) 97 Room Air 04/03/18 23:25 Room Air 04/03/18 15:45 Room Air 04/03/18 15:15 36.5 72 18 134/76 (95) 98 Room Air 04/03/18 11:59 36.8 68 20 118/64 (82) 96 Room Air Physical Exam General Appearance: WD/WN, no apparent distress Eyes: normal inspection, EOMI ENT: normal ENT inspection, pharynx normal Neck: supple, no adenopathy, thyroid normal, trachea midline Respiratory/Chest: chest non-tender, lungs clear, normal breath sounds, no respiratory distress Cardiovascular: regular rate, rhythm, no gallop, no murmur Abdomen: normal bowel sounds, non tender, soft, no organomegaly Extremities: no pedal edema, no calf tenderness, normal capillary refill Neurologic/Psychiatric: alert, oriented x 3 Skin: normal color, no rash, + pertinent finding (Wound VAC in place left knee , surrounding erythema improved) Lymphatic: no adenopathy Laboratory Results ------- RUN DATE: 04/04/18 [facility] LAB PAGE 1 RUN TIME: 705 Specimen Inquiry PATIENT: AYANA GARZA LOC: [facility] U # : [id number] AGE/SX: 17/M ROOM: [id number] REG : 04/02/[address]: Meño Arora M.D. : 2000 BED: 2 DIS : STATUS: ADM IN TLOC: SPEC #: [id number] EDEL: 04/02/18-UNK STATUS: RES REQ #: [id number] RECD: 04/02/[address]: Meño Arora M.D. SOURCE: ABSCESS ENTR: 04/02/18 [facility] DR: Joseph Kemp MD SPDESC: KNEE LEFT Elías Avila M.D. Oconer, Joseph N., M.D. Pilgram, Philip A., M.D. ORDERED: AER/TIFFANIE CULTSMR Procedure Result Verified Site GRAM STAIN Final 04/02/18-1425 RESULT MANY WBCs SEEN FEW GRAM POSITIVE COCCI OR AER/TIFFANIE CULT Preliminary 04/04/18-07 Organism 1 STAPHYLOCOCCUS AUREUS QUANITY MODERATE SENS SENSITIVITY TO FOLLOW 1. STAPHYLOCOCCUS AUREUS Target Route Dose RX AB Cost M.I.C. IQ ------ ----- ------ -- ------ -------- - ------ TRIMET/SULFA S <=0.5/ 9.5 * OXACILLIN S <=0.25 VANCOMYCIN S 1 ERYTHROMYCIN R >4 TETRACYCLINE S <=4 CLINDAMYCIN R <=0.5 DAPTOMYCIN S <=0.5 S = SENSITIVE I = INTERMEDIATE R = RESISTANT Last 24 Hours Test 04/04/18 03:35 Creatinine 0.86 mg/dl Est Creatinine Clear Calc Drug Dose 200.3 ml/min Estimated GFR () 145.7 Estimated GFR (Non- 125.7 Assessment and Plan (1) Abscess of leg, left Status: Acute Left knee infection with septic prepatellar bursitis with methicillin sensitive staph aureus. Patient can transition to oral antibiotics, recommend Bactrim DS 1 twice daily for 2 weeks. Follow-up with the wound care center.
--- NOTE | 2018-04-04 10:44 | Discharge Instructions ---
Discharge Instructions Date of Service Apr 04, 2018. Admission Reason for Admission: Sepsis Discharge Discharge Diagnosis / Problem: Sepsis secondary to left knee infection Discharge Goals Goal(s): Improve function, Improve disease control Activity Recommendations Activity Limitations: per Instructions/Follow-up section . Instructions / Follow-Up Instructions / Follow-Up Hospital Course and Discharge Plans Sepsis secondary to left knee infection was initially on vancomycin had arthrocentesis in the emergency room on 04/01/18 with elevated synovial WBC and gram positive cocci on gram stain that is now speciating as MSSA s/p left knee prepatellar bursitis drainage with wound vac on 04/02/18 by orthopedic service Infectious disease consult recommended that patient be switched from vancomycin to cefazolin 2 grams q8 hours Also then recommended that patient could be transitioned to oral Bactrim 1 DS twice daily, likely in the range of 2 weeks. will plan to start oral bactrim on 04/04/18 after re-evaluation tomorrow Abnormal Lyme screen (IgG positive) but negative IgM suggestive of past Lyme exposure Lyme Western Blot pending PCR of synovial fluid negative for Lyme Mood disorder, Obsessive compulsive disorder and autism as per records Anxiety as per family members but non adherent on medications Ongoing tobacco use Nicotine patch offered Smoking cessation counseling offered Discharge Instructions Patient will be discharged with prescription of oral bactrim twice daily for 2 weeks Patient should follow with primary care doctor Sunday04/08/18 at 12:[address] Harrell at [address] [place] [address] [place] [address] Patient should follow up with infectious disease Dr. Joseph Kemp in 7 to [address], [address] [place] [address] Patient should follow up with orthopedics Dr Bryan Powell in 1 week and follow instructions as listed below Discharge Instructions from Orthopedics: Change the dressing that is covering the drain site daily. After 1 week, you may leave it to the open air if it is not draining. Keep the purple sponge dressing with the tube on for 1 week. See the instructions below for this dressing. Prevena- This is a large suction dressing covering your incision. This will help pull any excess drainage from the wound and allow your incision to heal properly. You may shower with this if you can keep the unit outside of the shower. If any bleeding or leakage is noted please call your doctor's office. This will remain on your incision for 7 days and then should be removed. This can be done yourself or by the home nursing staff if applicable. The entire unit is disposable once removed. Once removed, keep incision clean and dry. If redness or drainage is noted, please call your surgeon. Keep gauze over the main wound until seen back in the office. You may use an matthew wrap to to keep the dressing in place. You can be weightbearing as tolerated. Gentle range of motion the knee is allowed. Follow up with Dr Powell in 1 week. Call for an appointment. Please call the office if you are having fever of 101 or greater, chills, nausea /vomitting, increased redness or swelling of the wound or knee. [phone] Current Hospital Diet Patient's current hospital diet: Regular Diet Discharge Diet Recommended Diet: Regular Diet Procedures Procedures Performed: Irrigation and debridement left knee abscess Pending Studies Studies pending at discharge: yes List of pending studies: Lyme Western blot Laboratory Results 04/03/18 05:31 Red Blood Count 4.85, Mean Corpuscular Volume 85.6, Mean Corpuscular Hemoglobin 28.2, Mean Corpuscular Hemoglobin Concent 33.0, Mean Platelet Volume 11.4, Neutrophils (%) (Auto) 80.8, Lymphocytes (%) (Auto) 12.5, Monocytes (%) (Auto) 6.3, Eosinophils (%) (Auto) 0.1, Basophils (%) (Auto) 0.0, Neutrophils # (Auto) 9.18, Lymphocytes # (Auto) 1.42, Monocytes # (Auto) 0.71, Eosinophils # (Auto) 0.01, Basophils # (Auto) 0.00 04/01/18 20:30 04/04/18 03:35 Test 04/01/18 20:30 04/01/18 20:40 04/01/18 22:20 04/02/18 05:50 Erythrocyte Sedimentation Rate 42 mm/hr (0-14) Anion Gap 6.0 mmol/L (3-11) BUN/Creatinine Ratio 10.8 (10-20) Calcium Level 9.2 mg/dl (8.5-10.1) Magnesium Level 1.9 mg/dl (1.8-2.4) Total Bilirubin 0.4 mg/dl (0.2-1) Direct Bilirubin 0.1 mg/dl (0-0.2) Aspartate Amino Transf (AST/SGOT) 23 U/L (15-37) Alanine Aminotransferase (ALT/SGPT) 29 U/L (12-78) Alkaline Phosphatase 96 U/L (45-117) C-Reactive Protein 7.93 mg/dl (0-0.29) Total Protein 7.8 gm/dl (6.4-8.2) Albumin 3.6 gm/dl (3.4-5.0) Lipase 104 U/L (73-393) Thyroid Stimulating Hormone (TSH) 2.920 uIu/ml (0.300-4.500) Lyme Disease IgG Antibody POS (NEG) Lactic Acid Level 0.8 mmol/L (0.4-2.0) Body Fluid Lyme Disease DNA (PCR) Not detected (Not Detected) Synovial Fluid Source KNEE Synovial Fluid Color RED Synovial Fluid Appearance MUCOID Synovial Fluid WBC 047155 /uL (0-200) Synovial Fluid RBC 626924 /uL Synovial Fluid Polynuclear WBCs % 98.7 % Synovial Fluid Mononuclear WBCs % 1.3 % Synovial Fluid Crystals Lyme Disease Specimen Source Synovial Fluid Prothrombin Time 10.5 SECONDS (9.0-12.0) Prothromb Time International Ratio 1.0 (0.9-1.1) Activated Partial Thromboplast Time 32.1 SECONDS (21.0-31.0) Partial Thromboplastin Ratio 1.2 Test 04/03/18 05:31 04/04/18 03:35 White Blood Count 11.35 K/uL (4.8-10.8) Red Blood Count 4.85 M/uL (4.7-6.1) Hemoglobin 13.7 g/dL (14.0-18.0) Hematocrit 41.5 % (42-52) Mean Corpuscular Volume 85.6 fL (80-100) Mean Corpuscular Hemoglobin 28.2 pg (25-34) Mean Corpuscular Hemoglobin Concent 33.0 g/dl (32-36) Platelet Count 257 K/uL (130-400) Mean Platelet Volume 11.4 fL (7.4-10.4) Neutrophils (%) (Auto) 80.8 % Lymphocytes (%) (Auto) 12.5 % Monocytes (%) (Auto) 6.3 % Eosinophils (%) (Auto) 0.1 % Basophils (%) (Auto) 0.0 % Neutrophils # (Auto) 9.18 K/uL (1.4-6.5) Lymphocytes # (Auto) 1.42 K/uL (1.2-3.4) Monocytes # (Auto) 0.71 K/uL (0.11-0.59) Eosinophils # (Auto) 0.01 K/uL (0-0.5) Basophils # (Auto) 0.00 K/uL (0-0.2) RDW Standard Deviation 43.2 fL (36.4-46.3) RDW Coefficient of Variation 13.8 % (11.5-14.5) Immature Granulocyte % (Auto) 0.3 % Immature Granulocyte # (Auto) 0.03 K/uL (0.00-0.02) Vancomycin Level Trough 12.6 mcg/ml (SEE COMMENT) Est Creatinine Clear Calc Drug Dose 200.3 ml/min Estimated GFR () 145.7 Estimated GFR (Non- 125.7 Date/Time Source Procedure Growth Status 04/01/18 20:40 Blood Blood Culture - Preliminary NO GROWTH TO DATE. Resulted 04/02/18 00:00 Abscess Knee Left Gram Stain - Final Resulted 04/02/18 00:00 Bacterial Culture - Preliminary Staphylococcus Aureus Resulted Medical Emergencies . Who to Call and When: Medical Emergencies: If at any time you feel your situation is an emergency, please call 911 immediately. . Non-Emergent Contact Non-Emergency issues call your: Primary Care Provider, Surgeon (orthopedics), Specialist (infectious disease) Call Non-Emergent contact if: you have any medication questions . . "Provider Documentation" section prepared by Meño Arora. . Oil Field Pipeline Supervisor Recommendations [employer] Pipeline Supervisor Recommendations: Change the dressing that is covering the drain site daily. After 1 week, you may leave it to the open air if it is not draining. Keep the purple sponge dressing with the tube on for 1 week. See the instructions below for this dressing. Prevena- This is a large suction dressing covering your incision. This will help pull any excess drainage from the wound and allow your incision to heal properly. You may shower with this if you can keep the unit outside of the shower. If any bleeding or leakage is noted please call your doctor's office. This will remain on your incision for 7 days and then should be removed. This can be done yourself or by the home nursing staff if applicable. The entire unit is disposable once removed. Once removed, keep incision clean and dry. If redness or drainage is noted, please call your surgeon. Keep gauze over the main wound until seen back in the office. You may use an matthew wrap to to keep the dressing in place. You can be weightbearing as tolerated. Gentle range of motion the knee is allowed. Follow up with Dr Powell in 1 week. Call for an appointment. Please call the office if you are having fever of 101 or greater, chills, nausea /vomitting, increased redness or swelling of the wound or knee. [phone]
--- NOTE | 2018-04-04 10:45 | Discharge Summary ---
Discharge Summary Date of Service Apr 04, 2018. Discharge Summary Admission Date: Apr 02, 2018 at 00:19 Discharge Date: Apr 04, 2018 Discharge Disposition: Home Principal Diagnosis: Sepsis secondary to left knee infection Medication Reconciliation New Medications: Gauze Pads & Dressings (Nexcare Adhesive Dressing) 1 Pad Pad UNIT TD DAILY, #10 apply 1 pad to cover the knee daily Ibuprofen (Advil) 200 Mg Tab 400 MG PO Q6H PRN for pain for 5 Days, #40 TAB Nicotine (Nicoderm Cq) 21 Mg/24 Hr Dis 1 PATCH TD DAILY@2200 for 30 Days, #30 PATCH apply a patch daily for 24 hours. then remove that patch and apply a different patch Sulfamethoxazole-Trimethoprim (Smz-Tmp Ds) 1 Tab Tab 1 TAB PO Q12 for 14 Days, #28 TAB Discontinued Medications: Sulfa/Trimethoprim (Bactrim Ds 800MG/160MG) Tab 1 TAB PO BID for 3 Days, TAB PRESCRIBED 03/30/2018, TAKE DIRECTED UNTIL GONE Admission Information HPI (per Admitting provider): CHIEF COMPLAINT: Left knee swelling/pain. HISTORY OF PRESENT ILLNESS: History obtained from patient and records. Medical history significant for attention deficit, OCD, childhood leukemia in remission, prediabetes as per records, mood disorder, developmental disorder, autism, asthma, ongoing tobacco abuse. Few days history of L Knee swelling. No recollection of trauma. No fever, no chills. No recollection of recent tick bites. Seen at PCP's office 3 days ago. Impression was LLE cellulitis versus abscess. Given IM Ceftriaxone. Bactrim prescription given. Follow-up visit the following day. Improved swelling. Outpatient US the left lower extremity showed complex cystic heterogenous collection anterior left knee 3.3 x 1.9 x 4.7 cm with differentials including subcutaneous abscess, septic bursitis, arthritis. Outpatient Orthopedics referral recommended. Patient brought to the ER by family because of fever, chills. At the Emergency Room, the patient received Vancomycin, Zosyn, and Ceftriaxone after aspiration of left knee fluid. MEDICAL HISTORY: As above. SURGERIES: circumcision. HOME MEDICATIONS: Include Bactrim. ALLERGIES: LITHIUM. FAMILY HISTORY: There is a family history of hypertension, heart disease, diabetes. PERSONAL AND SOCIAL HISTORY: A pack daily. No chronic intake of alcoholic beverages. Disabled. REVIEW OF SYSTEMS: As per HPI, all 10 systems reviewed. All other ROS negative. Physical Exam (per Admitting): PHYSICAL EXAMINATION: VITAL SIGNS: Blood pressure was noted to be 144/80, pulse rate 94, RR 20 temperature 38, sats 98 on room air. GENERAL: Noted to be obese, comfortable, in no respiratory distress. SKIN: Normal color, warm. HEENT: [place] palpebral conjunctivae. No ptosis. Dry mucosa. NECK: Short, supple. CHEST: Decreased effort, no tenderness. HEART: Regular rate and rhythm, no murmur. ABDOMEN: Soft, nontender. EXTREMITIES: Tender indurated swelling on the left knee, induration, minimal limitation in L knee ROM. NEUROLOGIC: Coherent. No gross focality. Hospital Course Hospital Course and Discharge Plans Sepsis secondary to left knee infection was initially on vancomycin had arthrocentesis in the emergency room on 04/01/18 with elevated synovial WBC and gram positive cocci on gram stain that is now speciating as MSSA s/p left knee prepatellar bursitis drainage with wound vac on 04/02/18 by orthopedic service Infectious disease consult recommended that patient be switched from vancomycin to cefazolin 2 grams q8 hours Also then recommended that patient could be transitioned to oral Bactrim 1 DS twice daily, likely in the range of 2 weeks. will plan to start oral bactrim on 04/04/18 after re-evaluation tomorrow Abnormal Lyme screen (IgG positive) but negative IgM suggestive of past Lyme exposure Lyme Western Blot pending PCR of synovial fluid negative for Lyme Mood disorder, Obsessive compulsive disorder and autism as per records Anxiety as per family members but non adherent on medications Ongoing tobacco use Nicotine patch offered Smoking cessation counseling offered Discharge Instructions Patient will be discharged with prescription of oral bactrim twice daily for 2 weeks Patient should follow with primary care doctor Sunday04/08/18 at 12:[address] Harrell at [address] [place] [address] [place], [place] [address] Patient should follow up with infectious disease Dr. Joseph Kemp in 7 to 10 days [place] [id number] [facility], [address] [place] [address] Patient should follow up with orthopedics Dr Bryan Powell in 1 week and follow instructions as listed below Discharge Instructions from Orthopedics: Change the dressing that is covering the drain site daily. After 1 week, you may leave it to the open air if it is not draining. Keep the purple sponge dressing with the tube on for 1 week. See the instructions below for this dressing. Prevena- This is a large suction dressing covering your incision. This will help pull any excess drainage from the wound and allow your incision to heal properly. You may shower with this if you can keep the unit outside of the shower. If any bleeding or leakage is noted please call your doctor's office. This will remain on your incision for 7 days and then should be removed. This can be done yourself or by the home nursing staff if applicable. The entire unit is disposable once removed. Once removed, keep incision clean and dry. If redness or drainage is noted, please call your surgeon. Keep gauze over the main wound until seen back in the office. You may use an matthew wrap to to keep the dressing in place. You can be weightbearing as tolerated. Gentle range of motion the knee is allowed. Follow up with Dr Powell in 1 week. Call for an appointment. Please call the office if you are having fever of 101 or greater, chills, nausea /vomitting, increased redness or swelling of the wound or knee. [phone] Total time spent on discharge = 40 minutes This includes examination of the patient, discharge planning, medication reconciliation, and communication with other providers. Discharge Instructions see above
[2018-04-04 12:03] VITALS: BP 134/80; PULSE 53; TEMP 36.3; O2SAT 96
[2018-04-04] MEDS ORDERED: VANCOMYCIN TROUGH ONE (13:30)
--- NOTE | 2018-04-09 12:00 | EDITING REQUIRED CODING QUERY ---
DEBRIDEMENT DOCUMENTATION To promote full compliance with coding requirements relating to patient care, physician participation is requested in all cases of transit authority police officer uncertainty. Please assist us with the question(s) below: Please place an X in the parenthesis (x). If other, please document the finding: Type of Debridement: (x) Excisional Debridement- Cutting away necrotic, devitalized tissue or slough to the level of viable tissue using a sharp instrument (i.e. scalpel, scissors, etc.) ( ) Non Excisional Debridement- The removal of necrotic, devitalized tissue or slough by means of scraping, mechanical brushing, flushing, or washing (i.e. irrigation,whirlpool);minor removal of loose fragments. ( ) Other (please specify): Instrument Used: (x) Scissors (x) Scalpel ( ) Curette ( ) Other (please specify): Depth of Debridement: (x) Skin ( ) Skin and Subcutaneous Tissue ( ) Skin, Subcutaneous Tissue and Muscle ( ) Skin, Subcutaneous Tissue, Muscle and Bone ( ) Other (please specify): Please Specify the Size of Debridement in cm2: 2 cm2 Thank you Priscilla Ralph
--- NOTE | 2018-04-10 08:21 | EDITING REQUIRED CODING QUERY ---
DEBRIDEMENT DOCUMENTATION To promote full compliance with coding requirements relating to patient care, physician participation is requested in all cases of electroplating laborer uncertainty. Please assist us with the question(s) below: Please place an X in the parenthesis (x). If other, please document the finding: Type of Debridement: (X) Excisional Debridement- Cutting away necrotic, devitalized tissue or slough to the level of viable tissue using a sharp instrument (i.e. scalpel, scissors, etc.) ( ) Non Excisional Debridement- The removal of necrotic, devitalized tissue or slough by means of scraping, mechanical brushing, flushing, or washing (i.e. irrigation,whirlpool);minor removal of loose fragments. ( ) Other (please specify): Instrument Used: (X) Scissors (X) Scalpel (X) Curette ( ) Other (please specify): Depth of Debridement: ( ) Skin (X) Skin and Subcutaneous Tissue ( ) Skin, Subcutaneous Tissue and Muscle ( ) Skin, Subcutaneous Tissue, Muscle and Bone ( ) Other (please specify): Please Specify the Size of Debridement in cm2: 30cm2 Debridement was done for: ( ) Diagnostic purpose (X) Therapeutic purpose ( ) Both Diagnostic and Therapeutic purposes Thank you Priscilla Ralph
== END 2018-04-04 13:06 | disposition home or self-care (01) | DRG 854 ==
LOC: C.EDB 19:45 → C.MSN 04-02 00:19 → EDBEDREQ 04-02 00:59 → EDBEDREQSVC 04-02 00:59 → ENRESERV 04-02 01:01 → CANRESERV 04-02 01:01 → ENRESERV 04-02 01:06
PROVIDERS: ADMIT Hospitalist; ATTEND Hospitalist
PROC: 0M9P3ZZ Drainage of Left Knee Bursa and Ligament, Percutaneous Approach (ICD-10-PCS; 2018-04-01)
PROC: 0JBP0ZZ Excision of Left Lower Leg Subcutaneous Tissue and Fascia, Open Approach (ICD-10-PCS; principal; 2018-04-02 11:00)
DX: A41.9 Sepsis, unspecified organism (principal); L02.416 Cutaneous abscess of left lower limb; M71.162 Other infective bursitis, left knee; M70.42 Prepatellar bursitis, left knee; B95.61 Methicillin susceptible Staphylococcus aureus infection as the cause of diseases classified elsewhere; J45.909 Unspecified asthma, uncomplicated; F17.200 Nicotine dependence, unspecified, uncomplicated; Z20.828 Contact with and (suspected) exposure to other viral communicable diseases; Z86.59 Personal history of other mental and behavioral disorders; Z85.6 Personal history of leukemia; Z88.8 Allergy status to other drugs, medicaments and biological substances; Z81.8 Family history of other mental and behavioral disorders; Z82.49 Family history of ischemic heart disease and other diseases of the circulatory system; Z83.3 Family history of diabetes mellitus